=== PATIENT | female | born 1945 | race American Indian/Alaskan Native ===

== ENCOUNTER 2019-01-23 23:43 | Emergency (ER) | payer MEDICARE, OTHER ==
[2019-01-23] MEDS ORDERED: fentaNYL 100 MCG/2 ML SDV IVPUSH ONE (23:54)
[2019-01-23 23:55] VITALS: BP 167/55; PULSE 72
--- NOTE | 2019-01-23 23:57 | EDM.PDOC ---
ED HPI GENERAL MEDICAL PROBLEM - General Chief Complaint: Lower Extremity Injury/Pain Stated Complaint: AMBULANCE Time Seen by Provider: 01/23/19 23:54 Source of Information: Reports: Patient, EMS History Limitations: Reports: No Limitations - History of Present Illness INITIAL COMMENTS - FREE TEXT/NARRATIVE: EMS arrived with pt lying on front proch. pt states was carrying soda and going up stairs and lost balance and fell onto left hip unable get back up. Left Leg Pain Score (Numeric/FACES): 8 - Related Data Allergies Allergy/AdvReac Type Severity Reaction Status Date / Time diphenhydramine HCl Allergy Anxiety Verified 01/24/19 00:00 [From Benadryl] Home Meds: Home Meds Ascorbic Acid 1,000 gm PO DAILY 03/21/14 [History] Insulin Detemir [Levemir] 25 unit SQ BEDTIME 03/21/14 [History] Iron Polysaccharide Complex [Poly-Iron] 150 mg PO DAILY 03/21/14 [History] Lisinopril [Prinivil] 40 mg PO DAILY 03/21/14 [History] metFORMIN [Glucophage] 1,000 mg PO BIDM 03/21/14 [History] Aspirin [Halfprin] 81 mg PO DAILY 09/12/14 [History] Ranitidine [Zantac] 150 mg PO DAILY 09/12/14 [History] atorvaSTATin Calcium [Atorvastatin Calcium] 5 mg PO BEDTIME 09/12/14 [History] Multivitamin with Minerals [Antioxidant Vitamin] 1 tab PO DAILY 09/01/15 [ History] Potassium Chloride [Klor-Con M20] 20 meq PO BID 09/28/15 [History] Metoprolol Tartrate [Lopressor] 50 mg PO DAILY 01/21/16 [History] Albuterol [Proventil Neb Soln] 1 ampule INH Q4HR PRN 02/15/16 [History] Furosemide [Lasix] 20 mg PO BID #60 tablet 02/17/16 [Rx] Past Medical History HEENT History: Reports: None, Impaired Vision Cardiovascular History: Reports: Heart Failure, High Cholesterol, Hypertension Respiratory History: Reports: COPD, SOB Gastrointestinal History: Reports: GERD Genitourinary History: Reports: None 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 MANAGER History: partial hysterectomy still has ovaries Musculoskeletal History: Reports: Fracture Neurological History: Reports: None Psychiatric History: Reports: Anxiety Endocrine/Metabolic History: Reports: Diabetes, Type II, IDDM Hematologic History: Reports: Anemia, Iron Deficiency Immunologic History: Reports: None Oncologic (Cancer) History: Reports: None Dermatologic History: Reports: None - Past Surgical History GI Surgical History: Reports: Appendectomy, Cholecystectomy Female Surgical History: Reports: Hysterectomy Other Musculoskeletal Surgeries/Procedures:: rt knee cap replaced Social & Family History - Family History Cardiac: Reports: CAD, Heart Failure, High Cholesterol, Hypertension Respiratory: Reports: Asthma, COPD GI: Reports: Cholelithiasis, GERD : Reports: Renal Disease/Insufficiency Neurological: Reports: CVA Endocrine/Metabolic: Reports: Diabetes, type II - Tobacco Use Smoking Status *Q: Never Smoker - Caffeine Use Caffeine Use: Reports: Coffee, Tea - Recreational Drug Use Recreational Drug Use: No - Living Situation & Occupation Living situation: Reports: with Family Occupation: Retired Review of Systems - Review of Systems Review Of Systems: ROS reveals no pertinent complaints other than HPI. ED EXAM, GENERAL - Physical Exam Exam: See Below Exam Limited By: No Limitations General Appearance: Alert, WD/WN, Mild Distress, Moderate Distress, Other (pain) Ears: Hearing Grossly Normal Throat/Mouth: Normal Voice, No Airway Compromise Head: Atraumatic Neck: Non-Tender, Full Range of Motion Respiratory/Chest: No Respiratory Distress Cardiovascular: Regular Rate, Rhythm GI/Abdominal: Soft, Non-Tender Extremities: Other (left hip tender R/P, NV wnl.) Neurological: Alert, Oriented, Normal Cognition, No Motor/Sensory Deficits Psychiatric: Tearful Skin Exam: Warm, Dry, Normal Color Course - Vital Signs Last Recorded V/S: Last Vital Signs Temp 36.6 C 01/23/19 23:43 Pulse 72 01/23/19 23:43 Resp 18 01/23/19 23:43 BP 167/55 H 01/23/19 23:43 Pulse Ox 93 L 01/23/19 23:43 - Orders/Labs/Meds Orders: Active Orders 24 hr Category Date Time Status Fournier Catheter Insertion [Insert Urinary Catheter] [OM. Care 01/24/19 00:15 Ordered PC] Q24H Urinary Catheter Assessment [RC] ASDIRECTED Care 01/24/19 00:15 Active CMP [COMPREHENSIVE METABOLIC PN,CMP] [CHEM] Stat Lab 01/23/19 23:53 Ordered UA RFX ANTONIO AND CULT IF INDIC [URIN] Stat Lab 01/24/19 00:10 Received Labs: Laboratory Tests 01/23/19 Range/Units 23:58 WBC 9.3 (5.0-10.0) 10^3/uL RBC 3.94 L (4.2-5.4) 10^6/uL Hgb 11.2 L (12.0-16.0) g/dL Hct 33.5 L (37.0-47.0) % MCV 85.0 (80-100) fL MCH 28.4 (27.0-34.0) pg MCHC 33.4 (33.0-35.0) g/dL Plt Count 167 (150-450) 10^3/uL Neut % (Auto) 73.7 (42.2-75.2) % Lymph % (Auto) 15.7 L (20.5-50.1) % [place] % (Auto) 6.9 (2-8) % Eos % (Auto) 3.1 H (1.0-3.0) % Baso % (Auto) 0.6 (0.0-1.0) % Meds: Medications Discontinued Medications Generic Name Dose Route Start Last Admin Trade Name Freq PRN Reason Stop Dose Admin Fentanyl 50 mcg 01/23/19 23:54 01/24/19 00:04 Sublimaze IVPUSH 01/23/19 23:55 50 mcg ONETIME ONE Administration - Re-Assessments/Exams Free Text/Narrative Re-Assessment/Exam: 01/24/19 00:[address] Rodo bryant @ who kindly accepted pt. Departure - Departure Time of Disposition: 00:43 Disposition: DC/Tfer to Acute Hospital 02 Condition: Fair Clinical Impression: Intertrochanteric fracture, hip - Discharge Information Forms: Interfacility Transfer EMTALA - My Orders Last 24 Hours: My Active Orders 01/23/19 23:53 CMP [COMPREHENSIVE METABOLIC PN,CMP] [CHEM] Stat 01/24/19 00:10 UA RFX ANTONIO AND CULT IF INDIC [URIN] Stat 01/24/19 00:15 Fournier Catheter Insertion [Insert Urinary Catheter] [OM.PC] Q24H Urinary Catheter Assessment [RC] ASDIRECTED - Assessment/Plan Last 24 Hours: My Active Orders 01/23/19 23:53 CMP [COMPREHENSIVE METABOLIC PN,CMP] [CHEM] Stat 01/24/19 00:10 UA RFX ANTONIO AND CULT IF INDIC [URIN] Stat 01/24/19 00:15 Fournier Catheter Insertion [Insert Urinary Catheter] [OM.PC] Q24H Urinary Catheter Assessment [RC] ASDIRECTED
[2019-01-24 00:41] LABS: ANION GAP 12.8; CHLORIDE,CL 101 mmol/L (101-111); SODIUM,NA 136 mmol/L (135-145)
[2019-01-24] MEDS ORDERED: HYDROmorphone 1 MG/ML Syringe IVPUSH ONE (01:14)
== END 2019-01-24 01:35 ==
LOC: DL.ED 23:43
DX: S72.142A Displaced intertrochanteric fracture of left femur, initial encounter for closed fracture (principal); Z79.4 Long term (current) use of insulin; Z79.82 Long term (current) use of aspirin; Z79.899 Other long term (current) drug therapy; Z88.8 Allergy status to other drugs, medicaments and biological substances; W10.9XXA Fall (on) (from) unspecified stairs and steps, initial encounter
CPT/HCPCS: 36415; 51702; 73502; 80053; 81001; 85025; 96374; 96375; 99285; J1170; J3010; 99284

== ENCOUNTER 2019-01-27 10:34 | Inpatient (IN) | payer MEDICARE, OTHER ==
[2019-01-27] MEDS ORDERED: Albuterol 0.083% 2.5 MG/3 ML Neb Soln NEB PRN (18:08)
[2019-01-27] MEDS ORDERED: Zolpidem 5 MG Tab PO PRN (18:10)
[2019-01-27] MEDS ORDERED: Docusate Sodium 100 MG Cap PO PRN (18:10)
[2019-01-27] MEDS ORDERED: Ondansetron 4 MG Tab.DIS PO PRN (18:10)
--- NOTE | 2019-01-27 19:02 | PCM.HP ---
H&P History of Present Illness - General Date of Service: 01/27/19 Admit Problem/Dx: Admission Diagnosis/Problem Admission Diagnosis/Problem Hip fracture, intertrochanteric Source of Information: Patient - History of Present Illness Initial Comments - Free Text/Narative: 73-year-old lady with a history of diabetes, hypertension, coronary artery disease The patient was admitted to [facility] with left femur fracture. The patient underwent gamma nailing. Subsequently the patient was transferred for further physical therapy in a swing bed setting. She has moderate left hip pain. Since the fracture. Improved since surgery. Better with rest. Worse with activity. No recent chest pain, fever. - Related Data Allergies/Adverse Reactions: Allergies Allergy/AdvReac Type Severity Reaction Status Date / Time adhesive tape Allergy Rash Verified 01/27/19 17:03 diphenhydramine HCl Allergy Anxiety Verified 01/27/19 17:03 [From Benadryl] Home Medications: Home Meds Insulin Detemir [Levemir] 25 unit SQ BID 03/21/14 [History] Iron Polysaccharide Complex [Poly-Iron] 150 mg PO BID 03/21/14 [History] Lisinopril [Prinivil] 40 mg PO DAILY 03/21/14 [History] metFORMIN [Glucophage] 1,000 mg PO BIDM 03/21/14 [History] Ranitidine [Zantac] 150 mg PO DAILY 09/12/14 [History] atorvaSTATin Calcium [Atorvastatin Calcium] 5 mg PO BEDTIME 09/12/14 [History] Multivitamin with Minerals [Antioxidant Vitamin] 1 tab PO DAILY 09/01/15 [ History] Potassium Chloride [Klor-Con M20] 20 meq PO BID 09/28/15 [History] Acetaminophen 1,000 mg PO Q8HR 01/27/19 [History] Albuterol [Proventil Neb Soln] 3 ml NEB Q4HR PRN 01/27/19 [History] Ascorbic Acid 500 mg PO DAILY 01/27/19 [History] Aspirin [Ecotrin] 81 mg PO DAILY 01/27/19 [History] Carvedilol [Coreg] 12.5 mg PO BID 01/27/19 [History] Cyanocobalamin (Vitamin B-12) [Vitamin B-12] 50 mcg PO DAILY 01/27/19 [History] Enoxaparin [Lovenox] 0.4 ml SUBCUT DAILY 01/27/19 [History] Furosemide [Lasix] 20 mg PO BIDAC 01/27/19 [History] Nystatin [Nystop] 1 applic TOP TID 01/27/19 [History] Oxybutynin 5 mg PO DAILY 01/27/19 [History] glyBURIDE [Glyburide] 2.5 mg PO ACBREAKFAST 01/27/19 [History] oxyCODONE 5 mg PO Q4HR PRN 01/27/19 [History] Past Medical History HEENT History: Reports: None, Impaired Vision Cardiovascular History: Reports: CAD, Heart Failure, High Cholesterol, Hypertension Respiratory History: Reports: COPD, SOB Gastrointestinal History: Reports: GERD, Pancreatitis Genitourinary History: Reports: None 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: partial hysterectomy still has ovaries Musculoskeletal History: Reports: Fracture Neurological History: Reports: Neuropathy, Diabetic Psychiatric History: Reports: Anxiety Endocrine/Metabolic History: Reports: Diabetes, Type II, IDDM Hematologic History: Reports: Anemia, Iron Deficiency Immunologic History: Reports: None Oncologic (Cancer) History: Reports: None Dermatologic History: Reports: None - Past Surgical History GI Surgical History: Reports: Appendectomy, Cholecystectomy Female Surgical History: Reports: Hysterectomy Other Musculoskeletal Surgeries/Procedures:: rt knee cap replaced, 1975 bilateral leg reduction per pt Social & Family History - Family History Family Medical History: Noncontributory Cardiac: Reports: CAD, Heart Failure, High Cholesterol, Hypertension Respiratory: Reports: Asthma, COPD GI: Reports: Cholelithiasis, GERD : Reports: Renal Disease/Insufficiency Neurological: Reports: CVA Endocrine/Metabolic: Reports: Diabetes, type II - Tobacco Use Smoking Status *Q: Never Smoker Used Tobacco, but Quit: Yes Month/Year Tobacco Last Used: 1992 Second Hand Smoke Exposure: Yes - Caffeine Use Caffeine Use: Reports: Coffee - Recreational Drug Use Recreational Drug Use: No - Living Situation & Occupation Living situation: Reports: with Family Occupation: Retired H&P Review of Systems - Review of Systems: Review Of Systems: See Below General: Denies: Fever Pulmonary: Denies: Shortness of Breath Cardiovascular: Denies: Chest Pain Gastrointestinal: Denies: Abdominal Pain Genitourinary: Denies: Dysuria Psychiatric: Denies: Confusion Exam - Exam Exam: See Below - Vital Signs Weight: 78.29 kg - Exam General: Alert, Oriented Neck: Supple Lungs: Clear to Auscultation, Normal Respiratory Effort Cardiovascular: Regular Rate, Regular Rhythm GI/Abdominal Exam: No Distention Extremities: No Pedal Edema - Patient Data Lab Results Last 24 hrs: Laboratory Results - last 24 hr 01/27/19 Range/Units 17:12 POC Glucose 490 H* (83-110) mg/dl - Problem List (1) Hypertension SNOMED Code(s): 65235848 ICD Code: I10 - ESSENTIAL (PRIMARY) HYPERTENSION Status: Acute Current Visit: Yes (2) Diabetes SNOMED Code(s): 63844875 ICD Code: E11.9 - TYPE 2 DIABETES MELLITUS WITHOUT COMPLICATIONS Status: Acute Current Visit: No (3) Hyperglycemia SNOMED Code(s): 42403102 ICD Code: R73.9 - HYPERGLYCEMIA, UNSPECIFIED Status: Acute Current Visit : No (4) Intertrochanteric fracture, hip SNOMED Code(s): 596751642 ICD Code: S72.143A - DISPLACED INTERTROCHANTERIC FRACTURE OF UNSP FEMUR, INIT Status: Acute Current Visit: No Problem List Initiated/Reviewed/Updated: Yes Orders Last 24hrs: Active Orders 24 hr Category Date Time Status Patient Status [ADT] Routine ADT 01/27/19 18:10 Active Antiembolic Devices [RC] PER UNIT ROUTINE Care 01/27/19 18:12 Active Glucose [Blood Glucose Check, Bedside] [RC] QIDACANDBED Care 01/27/19 18:10 Active Oxygen Therapy [RC] PRN Care 01/27/19 18:10 Active Up With Assistance [RC] ASDIRECTED Care 01/27/19 18:10 Active VTE/DVT Education [RC] PER UNIT ROUTINE Care 01/27/19 18:10 Active Vital Signs [RC] QSHIFT Care 01/27/19 18:10 Active OT Evaluation and Treatment [CONS] Routine Cons 01/27/19 18:10 Active PT Evaluation and Treatment [CONS] Routine Cons 01/27/19 18:10 Active Consistent Carbohydrate Diet [DIET] Diet 01/27/19 Breakfast Active Albuterol [Proventil Neb Soln] Med 01/27/19 18:08 Active 2.5 mg NEB Q4HR PRN Ascorbic Acid [Vitamin C] Med 01/28/19 09:00 Active 500 mg PO DAILY Aspirin [Halfprin] Med 01/28/19 09:00 Active 81 mg PO DAILY Carvedilol [Coreg] Med 01/27/19 21:00 Ordered 12.5 mg PO BID Cyanocobalamin (Vitamin B12) [Vitamin B12] Med 01/28/19 09:00 Active 50 mcg PO DAILY Docusate Sodium [Colace] Med 01/27/19 18:10 Active 100 mg PO BID PRN Enoxaparin [Lovenox] Med 01/28/19 09:00 Ordered 40 mg SUBCUT DAILY Furosemide [Lasix] Med 01/28/19 06:00 Active 20 mg PO BIDAC Insulin Glarg,Human.Rec.Analog [LantUS] Med 01/27/19 21:00 Ordered 25 unit SUBCUT BID Insulin Lispro [HumaLOG] Med 01/27/19 21:00 Ordered See Protocol SUBCUT ACBED Iron Polysaccharides Complex [Ferrex 150] Med 01/27/19 21:00 Active 150 mg PO BID Lisinopril [Prinivil] Med 01/28/19 09:00 Ordered 40 mg PO DAILY Multivitamin with Minerals [Antioxidant Vitamin] Med 01/28/19 09:00 Ordered 1 tab PO DAILY Nystatin [Nystop] Med 01/27/19 21:00 Ordered DOSE gm TOP TID Ondansetron [Zofran ODT] Med 01/27/19 18:10 Active 4 mg PO Q4H PRN Oxybutynin Med 01/28/19 09:00 Active 5 mg PO DAILY Potassium Chloride [Klor-Con M20] Med 01/27/19 21:00 Ordered 20 meq PO BID Zolpidem [Ambien] Med 01/27/19 18:10 Active 5 mg PO BEDTIME PRN atorvaSTATin [Lipitor] Med 01/27/19 21:00 Active 5 mg PO BEDTIME glyBURIDE [Micronase] Med 01/28/19 06:00 Active 2.5 mg PO ACBREAKFAST metFORMIN [Glucophage] Med 01/28/19 08:00 Ordered 1,000 mg PO BIDM oxyCODONE Med 01/27/19 18:08 Active 5 mg PO Q4HR PRN Antiembolic Hose [OM.PC] Per Unit Routine Oth 01/27/19 18:12 Ordered Resuscitation Status Routine Resus Stat 01/27/19 18:10 Ordered Medication Orders Albuterol (Proventil Neb Soln) 2.5 mg NEB Q4HR PRN PRN Reason: Wheezing Ascorbic Acid (Vitamin C) 500 mg PO DAILY LISA Aspirin (Halfprin) 81 mg PO DAILY LISA Atorvastatin Calcium (Lipitor) 5 mg PO BEDTIME LISA Cyanocobalamin (Vitamin B12) 50 mcg PO DAILY LISA Docusate Sodium (Colace) 100 mg PO BID PRN PRN Reason: Constipation Enoxaparin Sodium (Lovenox) 40 mg SUBCUT DAILY [facility] Stop: 02/04/19 09:01 Furosemide (Lasix) 20 mg PO BIDAC LISA Glyburide (Micronase) 2.5 mg PO ACBREAKFAST LISA Insulin Glargine (Lantus) 25 unit SUBCUT BID LISA Insulin Human Lispro (Humalog) 0 unit SUBCUT ACBED LISA; Protocol Non-Formulary Medication (Carvedilol [Coreg]) 12.5 mg PO BID LISA Non-Formulary Medication (Lisinopril [Prinivil]) 40 mg PO DAILY [facility] Non-Formulary Medication (Metformin [Glucophage]) 1,000 mg PO BIDM [facility] Non-Formulary Medication (Multivitamin With Minerals [Antioxidant Vitamin]) 1 tab PO DAILY [facility] Non-Formulary Medication (Potassium Chloride [Klor-Con M20]) 20 meq PO BID LISA Nystatin (Nystop) gm TOP TID LISA Ondansetron HCl (Zofran Odt) 4 mg PO Q4H PRN PRN Reason: nausea, able to take PO Oxybutynin Chloride (Oxybutynin) 5 mg PO DAILY [facility] Oxycodone HCl (Oxycodone) 5 mg PO Q4HR PRN PRN Reason: Pain (severe 7-10) Polysaccharide Iron Complex (Ferrex 150) 150 mg PO BID LISA Zolpidem Tartrate (Ambien) 5 mg PO BEDTIME PRN PRN Reason: Sleep Assessment/Plan Comment:: 73-year-old lady with a history of diabetes, hypertension, coronary artery disease The patient was admitted to [facility] with left femur fracture. The patient underwent gamma nailing. Subsequently the patient was transferred for further physical therapy in a swing bed setting. Status post left hip fracture DVT prophylaxis with Lovenox Consult physical and occupational therapy Coronary artery disease Treat with Coreg, Lipitor, aspirin Diabetes Treat with Lantus, metformin, glyburide Use supplemental insulin and hypoglycemia protocol if needed Hypertension Treat with lisinopril, Coreg,
[2019-01-27] MEDS: Insulin Lispro 100 Units/ML 3 ML Vial SUBCUT SCH ×2 (19:18→21:18)
[2019-01-27] MEDS: Carvedilol 6.25 MG Tab PO SCH (19:20)
[2019-01-27] MEDS: Furosemide 40 MG Tab PO SCH (19:21)
[2019-01-27] MEDS: oxyCODONE 5 MG Tab PO PRN (19:33)
[2019-01-27] MEDS ORDERED: INSULIN DETEMIR 25 UNIT SQ SCH (21:00)
[2019-01-27] MEDS: Potassium Chloride 10 MEQ Tab.ER PO SCH (21:00)
[2019-01-27] MEDS: atorvaSTATin 10 MG Tab PO SCH (21:00)
[2019-01-27] MEDS: Iron Polysaccharides Complex 150 MG Cap PO SCH (21:01)
[2019-01-27] MEDS: Nystatin Topical Powder 30 GM Bottle TOP SCH (21:03)
[2019-01-27] MEDS: Insulin Glarg,Human.Rec.Analog 100 Unit/ML SUBCUT SCH (21:20)
[2019-01-28] MEDS ORDERED: Acetaminophen 325 MG Tab PO PRN (03:47)
[2019-01-28] MEDS: oxyCODONE 5 MG Tab PO PRN ×2 (05:06→13:37)
[2019-01-28] MEDS: glyBURIDE 5 MG Tab PO SCH (07:47)
[2019-01-28] MEDS: Carvedilol 6.25 MG Tab PO SCH ×2 (07:49→17:30)
[2019-01-28] MEDS: Insulin Lispro 100 Units/ML 3 ML Vial SUBCUT SCH ×4 (07:53→22:23)
[2019-01-28] MEDS: Iron Polysaccharides Complex 150 MG Cap PO SCH ×2 (08:07→20:15)
[2019-01-28] MEDS: Potassium Chloride 10 MEQ Tab.ER PO SCH ×2 (08:07→20:13)
[2019-01-28] MEDS: Multivitamins,Therapeutic Tab PO SCH (08:08)
[2019-01-28] MEDS: Lisinopril 20 MG Tab PO SCH (08:08)
[2019-01-28] MEDS: Aspirin 81 MG Tab.EC PO SCH (08:09)
[2019-01-28] MEDS: Cyanocobalamin (Vitamin B12) 100 MCG Tab PO SCH (08:09)
[2019-01-28] MEDS: Ascorbic Acid 500 MG Tab PO SCH (08:09)
[2019-01-28] MEDS: Oxybutynin 5 MG Tab PO SCH (08:09)
[2019-01-28] MEDS: Furosemide 40 MG Tab PO SCH ×2 (08:10→13:35)
[2019-01-28] MEDS: Insulin Glarg,Human.Rec.Analog 100 Unit/ML SUBCUT SCH ×2 (08:15→22:21)
[2019-01-28] MEDS: Enoxaparin 40 MG/0.4 ML Syringe SUBCUT SCH (08:15)
[2019-01-28] MEDS ORDERED: Non-Formulary Medication 1 Each (Ranitidine [Zantac] 150 MG) PO SCH (09:00)
[2019-01-28] MEDS: Nystatin Topical Powder 30 GM Bottle TOP SCH ×2 (11:30→13:36)
[2019-01-28] MEDS: metFORMIN 500 MG Tab PO SCH ×2 (17:36→18:26)
[2019-01-28] MEDS: atorvaSTATin 10 MG Tab PO SCH (20:13)
[2019-01-29] MEDS: oxyCODONE 5 MG Tab PO PRN ×3 (03:32→19:43)
[2019-01-29] MEDS: Insulin Lispro 100 Units/ML 3 ML Vial SUBCUT SCH ×4 (09:04→21:47)
[2019-01-29] MEDS: Cyanocobalamin (Vitamin B12) 100 MCG Tab PO SCH (09:09)
[2019-01-29] MEDS: Potassium Chloride 10 MEQ Tab.ER PO SCH ×2 (09:10→21:48)
[2019-01-29] MEDS: Carvedilol 6.25 MG Tab PO SCH ×2 (09:11→17:48)
[2019-01-29] MEDS: glyBURIDE 5 MG Tab PO SCH (09:12)
[2019-01-29] MEDS: metFORMIN 500 MG Tab PO SCH ×2 (09:12→17:47)
[2019-01-29] MEDS: Oxybutynin 5 MG Tab PO SCH (09:12)
[2019-01-29] MEDS: Aspirin 81 MG Tab.EC PO SCH (09:12)
[2019-01-29] MEDS: Furosemide 40 MG Tab PO SCH ×2 (09:13→14:48)
[2019-01-29] MEDS: Lisinopril 20 MG Tab PO SCH (09:13)
[2019-01-29] MEDS: Iron Polysaccharides Complex 150 MG Cap PO SCH ×2 (09:14→21:48)
[2019-01-29] MEDS: Multivitamins,Therapeutic Tab PO SCH (09:14)
[2019-01-29] MEDS: Enoxaparin 40 MG/0.4 ML Syringe SUBCUT SCH (09:14)
[2019-01-29] MEDS: Ascorbic Acid 500 MG Tab PO SCH (09:14)
[2019-01-29] MEDS: Insulin Glarg,Human.Rec.Analog 100 Unit/ML SUBCUT SCH ×2 (10:18→21:47)
[2019-01-29] MEDS: atorvaSTATin 10 MG Tab PO SCH (21:48)
[2019-01-30] MEDS: Insulin Glarg,Human.Rec.Analog 100 Unit/ML SUBCUT SCH ×2 (08:41→22:53)
[2019-01-30] MEDS: Insulin Lispro 100 Units/ML 3 ML Vial SUBCUT SCH ×4 (08:42→22:52)
[2019-01-30] MEDS: Lisinopril 20 MG Tab PO SCH (08:47)
[2019-01-30] MEDS: Potassium Chloride 10 MEQ Tab.ER PO SCH ×2 (08:47→21:04)
[2019-01-30] MEDS: metFORMIN 500 MG Tab PO SCH ×2 (08:47→18:02)
[2019-01-30] MEDS: glyBURIDE 5 MG Tab PO SCH (08:47)
[2019-01-30] MEDS: Oxybutynin 5 MG Tab PO SCH (08:48)
[2019-01-30] MEDS: Iron Polysaccharides Complex 150 MG Cap PO SCH ×2 (08:48→21:04)
[2019-01-30] MEDS: Ascorbic Acid 500 MG Tab PO SCH (08:48)
[2019-01-30] MEDS: Furosemide 40 MG Tab PO SCH ×2 (08:48→13:19)
[2019-01-30] MEDS: Carvedilol 6.25 MG Tab PO SCH ×2 (08:48→18:01)
[2019-01-30] MEDS: Multivitamins,Therapeutic Tab PO SCH (08:48)
[2019-01-30] MEDS: Aspirin 81 MG Tab.EC PO SCH (08:49)
[2019-01-30] MEDS: Cyanocobalamin (Vitamin B12) 100 MCG Tab PO SCH (08:49)
[2019-01-30] MEDS: Enoxaparin 40 MG/0.4 ML Syringe SUBCUT SCH (08:49)
[2019-01-30] MEDS: oxyCODONE 5 MG Tab PO PRN ×3 (08:55→22:34)
[2019-01-30] MEDS: guaiFENesin 100 MG/5 ML Soln 5 ML UD Cup PO PRN (08:57)
[2019-01-30] MEDS: atorvaSTATin 10 MG Tab PO SCH (21:02)
[2019-01-31] MEDS: oxyCODONE 5 MG Tab PO PRN ×3 (06:48→22:21)
[2019-01-31] MEDS: Iron Polysaccharides Complex 150 MG Cap PO SCH ×2 (08:19→20:17)
[2019-01-31] MEDS: Ascorbic Acid 500 MG Tab PO SCH (08:20)
[2019-01-31] MEDS: glyBURIDE 5 MG Tab PO SCH (08:20)
[2019-01-31] MEDS: Aspirin 81 MG Tab.EC PO SCH (08:20)
[2019-01-31] MEDS: Oxybutynin 5 MG Tab PO SCH (08:20)
[2019-01-31] MEDS: Furosemide 40 MG Tab PO SCH ×2 (08:21→14:20)
[2019-01-31] MEDS: Lisinopril 20 MG Tab PO SCH (08:21)
[2019-01-31] MEDS: Multivitamins,Therapeutic Tab PO SCH (08:22)
[2019-01-31] MEDS: Carvedilol 6.25 MG Tab PO SCH ×2 (08:22→17:22)
[2019-01-31] MEDS: Potassium Chloride 10 MEQ Tab.ER PO SCH ×2 (08:23→20:17)
[2019-01-31] MEDS: Cyanocobalamin (Vitamin B12) 100 MCG Tab PO SCH (08:23)
[2019-01-31] MEDS: metFORMIN 500 MG Tab PO SCH ×2 (08:23→17:22)
[2019-01-31] MEDS: Enoxaparin 40 MG/0.4 ML Syringe SUBCUT SCH (08:24)
[2019-01-31] MEDS: Insulin Lispro 100 Units/ML 3 ML Vial SUBCUT SCH ×4 (08:26→22:21)
[2019-01-31] MEDS: Insulin Glarg,Human.Rec.Analog 100 Unit/ML SUBCUT SCH ×2 (09:05→22:18)
[2019-01-31] MEDS: atorvaSTATin 10 MG Tab PO SCH (20:17)
[2019-02-01] MEDS: Insulin Lispro 100 Units/ML 3 ML Vial SUBCUT SCH ×4 (08:18→21:20)
[2019-02-01] MEDS: Potassium Chloride 10 MEQ Tab.ER PO SCH ×2 (09:05→21:16)
[2019-02-01] MEDS: oxyCODONE 5 MG Tab PO PRN ×3 (09:05→21:16)
[2019-02-01] MEDS: Cyanocobalamin (Vitamin B12) 100 MCG Tab PO SCH (09:05)
[2019-02-01] MEDS: glyBURIDE 5 MG Tab PO SCH (09:06)
[2019-02-01] MEDS: Multivitamins,Therapeutic Tab PO SCH (09:06)
[2019-02-01] MEDS: Aspirin 81 MG Tab.EC PO SCH (09:06)
[2019-02-01] MEDS: Furosemide 40 MG Tab PO SCH ×2 (09:06→13:21)
[2019-02-01] MEDS: Ascorbic Acid 500 MG Tab PO SCH (09:06)
[2019-02-01] MEDS: Carvedilol 6.25 MG Tab PO SCH ×2 (09:06→18:29)
[2019-02-01] MEDS: Iron Polysaccharides Complex 150 MG Cap PO SCH ×2 (09:06→21:16)
[2019-02-01] MEDS: metFORMIN 500 MG Tab PO SCH ×2 (09:07→18:29)
[2019-02-01] MEDS: Lisinopril 20 MG Tab PO SCH (09:07)
[2019-02-01] MEDS: Insulin Glarg,Human.Rec.Analog 100 Unit/ML SUBCUT SCH ×2 (09:07→21:18)
[2019-02-01] MEDS: Oxybutynin 5 MG Tab PO SCH (09:07)
[2019-02-01] MEDS: Enoxaparin 40 MG/0.4 ML Syringe SUBCUT SCH (09:07)
[2019-02-01] MEDS: guaiFENesin 100 MG/5 ML Soln 5 ML UD Cup PO PRN (13:21)
[2019-02-01] MEDS: atorvaSTATin 10 MG Tab PO SCH (21:15)
[2019-02-02] MEDS: oxyCODONE 5 MG Tab PO PRN ×4 (06:00→21:25)
[2019-02-02] MEDS: Insulin Lispro 100 Units/ML 3 ML Vial SUBCUT SCH ×3 (09:23→16:59)
[2019-02-02] MEDS: Insulin Glarg,Human.Rec.Analog 100 Unit/ML SUBCUT SCH ×2 (09:27→21:15)
[2019-02-02] MEDS: Oxybutynin 5 MG Tab PO SCH (09:28)
[2019-02-02] MEDS: metFORMIN 500 MG Tab PO SCH ×2 (09:28→17:41)
[2019-02-02] MEDS: Potassium Chloride 10 MEQ Tab.ER PO SCH ×2 (09:28→21:13)
[2019-02-02] MEDS: Aspirin 81 MG Tab.EC PO SCH (09:28)
[2019-02-02] MEDS: Ascorbic Acid 500 MG Tab PO SCH (09:28)
[2019-02-02] MEDS: Furosemide 40 MG Tab PO SCH ×2 (09:30→15:50)
[2019-02-02] MEDS: Cyanocobalamin (Vitamin B12) 100 MCG Tab PO SCH (09:30)
[2019-02-02] MEDS: Carvedilol 6.25 MG Tab PO SCH ×2 (09:31→17:38)
[2019-02-02] MEDS: Iron Polysaccharides Complex 150 MG Cap PO SCH ×2 (09:31→21:13)
[2019-02-02] MEDS: Multivitamins,Therapeutic Tab PO SCH (09:31)
[2019-02-02] MEDS: Lisinopril 20 MG Tab PO SCH (09:32)
[2019-02-02] MEDS: glyBURIDE 5 MG Tab PO SCH (09:32)
[2019-02-02] MEDS: Enoxaparin 40 MG/0.4 ML Syringe SUBCUT SCH (09:35)
[2019-02-02] MEDS: atorvaSTATin 10 MG Tab PO SCH (21:13)
[2019-02-03] MEDS: Insulin Lispro 100 Units/ML 3 ML Vial SUBCUT SCH ×3 (00:37→12:22)
[2019-02-03] MEDS: metFORMIN 500 MG Tab PO SCH (08:40)
[2019-02-03] MEDS: Cyanocobalamin (Vitamin B12) 100 MCG Tab PO SCH (08:40)
[2019-02-03] MEDS: Potassium Chloride 10 MEQ Tab.ER PO SCH (08:40)
[2019-02-03] MEDS: Multivitamins,Therapeutic Tab PO SCH (08:40)
[2019-02-03] MEDS: Lisinopril 20 MG Tab PO SCH (08:41)
[2019-02-03] MEDS: glyBURIDE 5 MG Tab PO SCH (08:42)
[2019-02-03] MEDS: Iron Polysaccharides Complex 150 MG Cap PO SCH (08:42)
[2019-02-03] MEDS: Carvedilol 6.25 MG Tab PO SCH (08:43)
[2019-02-03] MEDS: Ascorbic Acid 500 MG Tab PO SCH (08:44)
[2019-02-03] MEDS: Enoxaparin 40 MG/0.4 ML Syringe SUBCUT SCH (08:44)
[2019-02-03] MEDS: Oxybutynin 5 MG Tab PO SCH (08:44)
[2019-02-03] MEDS: Aspirin 81 MG Tab.EC PO SCH (08:44)
[2019-02-03] MEDS: Furosemide 40 MG Tab PO SCH (08:44)
[2019-02-03 08:48] VITALS: BP 135/53; PULSE 74
[2019-02-03] MEDS: Insulin Glarg,Human.Rec.Analog 100 Unit/ML SUBCUT SCH (09:37)
--- NOTE | 2019-02-03 12:14 | PCM.DCSUM1 ---
Discharge Summary - Hospital Course Free Text/Narrative:: 73-year-old lady with a history of diabetes, hypertension, coronary artery disease The patient was admitted to [facility] with left femur fracture. The patient underwent gamma nailing. Subsequently the patient was transferred for further physical therapy in a swing bed setting. She did well with PT/OT during her stay in swing bed No new complaints Will discharge today with follow up with her PCP and the orthopedic clinic 20 tabs of 5 mg oxycodone were prescribed for prn pain control at home Diagnosis: Stroke: No - Discharge Data Discharge Date: 02/03/19 Discharge Disposition: Home, Self-Care 01 Condition: Good - Patient Summary/Data Consults: Consultations 01/27/19 18:10 OT Evaluation and Treatment [CONS] Routine PT Evaluation and Treatment [CONS] Routine - Patient Instructions Diet: Usual Diet as Tolerated Activity: As Tolerated - Discharge Plan Prescriptions/Med Rec: oxyCODONE 5 mg PO Q4HR PRN 7 Days #20 tablet PRN Reason: Pain (Severe 7-10) Home Medications: Home Meds Insulin Detemir [Levemir] 25 unit SQ BID 03/21/14 [History] Iron Polysaccharide Complex [Poly-Iron] 150 mg PO BID 03/21/14 [History] Lisinopril [Prinivil] 40 mg PO DAILY 03/21/14 [History] metFORMIN [Glucophage] 1,000 mg PO BIDM 03/21/14 [History] Ranitidine [Zantac] 150 mg PO DAILY 09/12/14 [History] atorvaSTATin Calcium [Atorvastatin Calcium] 5 mg PO BEDTIME 09/12/14 [History] Multivitamin with Minerals [Antioxidant Vitamin] 1 tab PO DAILY 09/01/15 [ History] Potassium Chloride [Klor-Con M20] 20 meq PO BID 09/28/15 [History] Acetaminophen 1,000 mg PO Q8HR 01/27/19 [History] Albuterol [Proventil Neb Soln] 3 ml NEB Q4HR PRN 01/27/19 [History] Ascorbic Acid 500 mg PO DAILY 01/27/19 [History] Aspirin [Ecotrin EC] 81 mg PO DAILY 01/27/19 [History] Carvedilol [Coreg] 12.5 mg PO BID 01/27/19 [History] Cyanocobalamin (Vitamin B-12) [Vitamin B-12] 50 mcg PO DAILY 01/27/19 [History] Enoxaparin [Lovenox] 0.4 ml SUBCUT DAILY 01/27/19 [History] Furosemide [Lasix] 20 mg PO BIDAC 01/27/19 [History] Nystatin [Nystop] 1 applic TOP TID 01/27/19 [History] Oxybutynin 5 mg PO DAILY 01/27/19 [History] glyBURIDE [Glyburide] 2.5 mg PO ACBREAKFAST 01/27/19 [History] oxyCODONE 5 mg PO Q4HR PRN 7 Days #20 tablet 02/03/19 [Rx] Patient Handouts: Hip Fracture - Discharge Summary/Plan Comment DC Time >30 min.: No - Patient Data Vitals - Most Recent: Last Vital Signs Temp 36.9 C 02/03/19 07:57 Pulse 74 02/03/19 08:43 Resp 20 02/03/19 07:57 BP 135/53 L 02/03/19 08:43 Pulse Ox 98 02/03/19 07:57 Weight - Most Recent: 74.117 kg I&O - Last 24 hours: Intake & Output 02/02/19 02/03/19 02/03/19 22:59 06:59 14:59 Intake Total 600 200 340 Balance 600 200 340 Lab Results - Last 24 hrs: Laboratory Results - last 24 hr 02/02/19 02/02/19 02/03/19 Range/Units 16:47 20:48 07:47 POC Glucose 87 139 H 87 (83-110) mg/dl 02/03/19 Range/Units 11:32 POC Glucose 156 H (83-110) mg/dl Med Orders - Current: Current Medications Acetaminophen (Tylenol) 650 mg PO Q4H PRN PRN Reason: pain. fever Albuterol (Proventil Neb Soln) 2.5 mg NEB Q4HR PRN PRN Reason: Wheezing Ascorbic Acid (Vitamin C) 500 mg PO DAILY LISA Last Admin: 02/03/19 08:44 Dose: 500 mg Aspirin (Halfprin) 81 mg PO DAILY LISA Last Admin: 02/03/19 08:44 Dose: 81 mg Atorvastatin Calcium (Lipitor) 5 mg PO BEDTIME LISA Last Admin: 02/02/19 21:13 Dose: 5 mg Carvedilol (Coreg) 12.5 mg PO BID@0800,1800 [facility] Last Admin: 02/03/19 08:43 Dose: 12.5 mg Cyanocobalamin (Vitamin B12) 50 mcg PO DAILY [facility] Last Admin: 02/03/19 08:40 Dose: 50 mcg Docusate Sodium (Colace) 100 mg PO BID PRN PRN Reason: Constipation Last Admin: 01/29/19 14:48 Dose: 100 mg Enoxaparin Sodium (Lovenox) 40 mg SUBCUT DAILY [facility] Stop: 02/04/19 09:01 Last Admin: 02/03/19 08:44 Dose: 40 mg Furosemide (Lasix) 20 mg PO BID@0900,1400 [facility] Last Admin: 02/03/19 08:44 Dose: 20 mg Glyburide (Micronase) 2.5 mg PO DAILY@0730 [facility] Last Admin: 02/03/19 08:42 Dose: 2.5 mg Guaifenesin (Robitussin) 200 mg PO Q6HR PRN PRN Reason: Cough Last Admin: 02/01/19 13:21 Dose: 200 mg Insulin Glargine (Lantus) 25 unit SUBCUT BID [facility] Last Admin: 02/03/19 09:37 Dose: 25 units Insulin Human Lispro (Humalog) 0 unit SUBCUT ACBED [facility]; Protocol Last Admin: 02/03/19 08:39 Dose: Not Given Lisinopril (Prinivil) 40 mg PO DAILY [facility] Last Admin: 02/03/19 08:41 Dose: 40 mg Metformin HCl (Glucophage) 1,000 mg PO BIDM [facility] Last Admin: 02/03/19 08:40 Dose: 1,000 mg Multivitamins (Thera) 1 each PO DAILY [facility] Last Admin: 02/03/19 08:40 Dose: 1 each Ondansetron HCl (Zofran Odt) 4 mg PO Q4H PRN PRN Reason: nausea, able to take PO Oxybutynin Chloride (Oxybutynin) 5 mg PO DAILY [facility] Last Admin: 02/03/19 08:44 Dose: 5 mg Oxycodone HCl (Oxycodone) 5 mg PO Q4HR PRN PRN Reason: Pain (severe 7-10) Last Admin: 02/02/19 21:25 Dose: 5 mg Polysaccharide Iron Complex (Ferrex 150) 150 mg PO BID [facility] Last Admin: 02/03/19 08:42 Dose: 150 mg Potassium Chloride (Klor-Con 10) 20 meq PO BID [facility] Last Admin: 02/03/19 08:40 Dose: 20 meq Zolpidem Tartrate (Ambien) 5 mg PO BEDTIME PRN PRN Reason: Sleep Discontinued Medications Non-Formulary Medication (Insulin Detemir [Levemir]) 25 unit SQ BID [facility] Non-Formulary Medication (Ranitidine [Zantac]) 150 mg PO DAILY [facility] Nystatin (Nystop) 0 gm TOP TID [facility] Last Admin: 01/28/19 13:36 Dose: Not Given
[2019-02-03] MEDS: oxyCODONE 5 MG Tab PO PRN (12:24)
== END 2019-02-03 13:30 | disposition home or self-care (01) | DRG 561 ==
LOC: UNDOADMIN 16:46 → DL.MS 16:46 → UNDOADMIN 18:10 → DL.MS 18:10 → UNDODISIN 02-03 13:30
PROVIDERS: ADMIT Internal Medicine; ATTEND Hospitalist
DX: Z47.89 Encounter for other orthopedic aftercare (principal); I10 Essential (primary) hypertension; I25.10 Atherosclerotic heart disease of native coronary artery without angina pectoris; H54.7 Unspecified visual loss; E78.00 Pure hypercholesterolemia, unspecified; J44.9 Chronic obstructive pulmonary disease, unspecified; E11.42 Type 2 diabetes mellitus with diabetic polyneuropathy; F41.9 Anxiety disorder, unspecified; D64.9 Anemia, unspecified; E11.65 Type 2 diabetes mellitus with hyperglycemia; Z79.4 Long term (current) use of insulin; Z79.82 Long term (current) use of aspirin; Z88.8 Allergy status to other drugs, medicaments and biological substances; Z91.048 Other nonmedicinal substance allergy status; Z90.710 Acquired absence of both cervix and uterus; Z90.49 Acquired absence of other specified parts of digestive tract
CPT/HCPCS: 82962; 97110-GO; 97110-GP; 97116-GP; 97162-GP; 97165-GO; 97530-GO; A9270-GY; J1650; J1815; J1815-GY

== ENCOUNTER 2022-04-23 15:20 | Emergency (ER) | payer MEDICARE, OTHER ==
[2022-04-23 15:35] VITALS: BP 145/60; PULSE 78
[2022-04-23 16:29] LABS: CORONAVIRUS COVID-19 NAA NEGATIVE (NEGATIVE)
[2022-04-23] MEDS ORDERED: Amoxicillin/Clavulanate K 875-125 MG Tab PO ONE (16:30)
[2022-04-23] MEDS ORDERED: Azithromycin 250 MG Tab PO ONE (16:30)
== END 2022-04-23 17:15 | disposition home or self-care (01) ==
LOC: DL.ED 15:20
DX: J18.9 Pneumonia, unspecified organism (principal); I25.10 Atherosclerotic heart disease of native coronary artery without angina pectoris; I11.0 Hypertensive heart disease with heart failure; I50.9 Heart failure, unspecified; E78.00 Pure hypercholesterolemia, unspecified; E11.9 Type 2 diabetes mellitus without complications; E66.9 Obesity, unspecified; Z68.25 Body mass index [BMI] 25.0-25.9, adult; Z91.048 Other nonmedicinal substance allergy status; Z88.8 Allergy status to other drugs, medicaments and biological substances; Z79.899 Other long term (current) drug therapy; Z79.4 Long term (current) use of insulin; Z79.82 Long term (current) use of aspirin; Z86.16 Personal history of COVID-19; Z20.822 Contact with and (suspected) exposure to COVID-19
CPT/HCPCS: 0240U; 71045; 99284; 99285; A9270-GY

== ENCOUNTER 2022-04-29 16:48 | Emergency (ER) | payer MEDICARE, OTHER ==
[2022-04-29 16:34] VITALS: BP 173/55; PULSE 68
[2022-04-29] MEDS ORDERED: Silver Nitrate Applicator Each TOP ONE (16:49)
[2022-04-29] MEDS ORDERED: Oxymetazoline 0.05% Nasal Spray 30 ML Bottle NAS ONE (16:50)
[2022-04-29] MEDS ORDERED: Lidocaine 2% with EPINEPHrine 1:200,000 20 ML SDV ONE (16:50)
[2022-04-29] MEDS ORDERED: Silver Nitrate Applicator Each ONE (16:52)
[2022-04-29] MEDS ORDERED: Bacitracin Oint 1 GM U/D Packet TOP ONE (16:58)
== END 2022-04-29 17:29 | disposition home or self-care (01) ==
LOC: DL.ED 16:48
DX: R04.0 Epistaxis (principal); I11.0 Hypertensive heart disease with heart failure; I50.9 Heart failure, unspecified; I25.10 Atherosclerotic heart disease of native coronary artery without angina pectoris; E11.40 Type 2 diabetes mellitus with diabetic neuropathy, unspecified; E78.00 Pure hypercholesterolemia, unspecified; E66.9 Obesity, unspecified; Z68.30 Body mass index [BMI] 30.0-30.9, adult; Z91.048 Other nonmedicinal substance allergy status; Z88.8 Allergy status to other drugs, medicaments and biological substances; Z79.4 Long term (current) use of insulin; Z79.899 Other long term (current) drug therapy; Z79.82 Long term (current) use of aspirin; Z87.891 Personal history of nicotine dependence
CPT/HCPCS: 30901; 99284; A9270

== ENCOUNTER 2022-07-27 14:06 | Emergency (ER) | payer MEDICARE, OTHER ==
[2022-07-27 15:41] LABS: ANION GAP 13.5 mEq/L (7-13); CHLORIDE,CL 99 mmol/L (98-107); ESTIMATED GFR 70 mL/min (>=60); SODIUM,NA 138 mmol/L (136-145)
== END 2022-07-27 18:33 | disposition home or self-care (01) ==
LOC: DL.ED 14:06
DX: R29.90 Unspecified symptoms and signs involving the nervous system (principal); I25.10 Atherosclerotic heart disease of native coronary artery without angina pectoris; I11.0 Hypertensive heart disease with heart failure; I50.9 Heart failure, unspecified; E78.00 Pure hypercholesterolemia, unspecified; J44.9 Chronic obstructive pulmonary disease, unspecified; K21.9 Gastro-esophageal reflux disease without esophagitis; E11.40 Type 2 diabetes mellitus with diabetic neuropathy, unspecified; D50.9 Iron deficiency anemia, unspecified; E66.9 Obesity, unspecified; Z87.891 Personal history of nicotine dependence; Z91.048 Other nonmedicinal substance allergy status; Z88.8 Allergy status to other drugs, medicaments and biological substances; Z79.4 Long term (current) use of insulin; Z79.82 Long term (current) use of aspirin; Z79.899 Other long term (current) drug therapy
CPT/HCPCS: 36415; 71045; 80053; 82947; 83880; 84484; 85025; 93005; 99285

== ENCOUNTER 2022-07-29 16:09 | Inpatient (IN) | payer MEDICARE, OTHER ==
[2022-07-29] MEDS ORDERED: Acetaminophen 500 MG Tab PO ONE (16:23)
[2022-07-29] MEDS: Sodium Chloride 0.9% 10 ML Syringe FLUSH PRN (16:50)
[2022-07-29 16:57] LABS: CORONAVIRUS COVID-19 NAA NEGATIVE (NEGATIVE); RESPIRATORY SYNCYTIAL VIR NAA NEGATIVE (NEGATIVE)
[2022-07-29 17:19] LABS: ANION GAP 12.7 mEq/L (7-13)
[2022-07-29] MEDS ORDERED: Magnesium Sulfate/Water 2 GM in Premix Bag 1 BAG IV ONE ×2 (17:28→17:29)
[2022-07-29] MEDS ORDERED: Cefepime 2 GM in Sodium Chloride 0.9% 50 ML IV ONE (17:29)
[2022-07-29] MEDS ORDERED: Sodium Chloride 0.9% 1,000 ML IV ONE (17:30)
[2022-07-29] MEDS ORDERED: metroNIDAZOLE/Normal Saline 500 MG in Premix Bag 100 BAG IV ONE (17:47)
[2022-07-29] MEDS ORDERED: Iopamidol 612 MG/ML 100 ML Bottle IVPUSH ONE (17:47)
[2022-07-29] MEDS ORDERED: Piperacillin/Tazobactam 3.375 GM in Sodium Chloride 0.9% 100 ML IV ONE (20:24)
[2022-07-29] MEDS ORDERED: Acetaminophen 325 MG Tab PO PRN (20:26)
[2022-07-29] MEDS ORDERED: Acetaminophen/HYDROcodone 325-5 MG Tab PO PRN (20:26)
[2022-07-29] MEDS ORDERED: Polyethylene Glycol 3350 Powder 17 GM Packet PO PRN (20:26)
[2022-07-29] MEDS ORDERED: Albuterol/Ipratropium 3.0-0.5 MG/3 ML Neb Soln NEB PRN (20:26)
[2022-07-29] MEDS ORDERED: HYDROmorphone 0.5 MG/0.5 ML Syringe IVPUSH PRN (20:26)
[2022-07-29] MEDS ORDERED: Magnesium Hydroxide 400 MG/5 ML Susp 30 ML Cup PO PRN (20:26)
[2022-07-29] MEDS ORDERED: Ondansetron 4 MG/2 ML SDV IVPUSH PRN (20:26)
[2022-07-29] MEDS ORDERED: MVI, Adult with Vitamin K 10 ML SDV IV ONE (20:34)
[2022-07-29] MEDS ORDERED: 50% Dextrose in Water 50 ML Syringe IVPUSH PRN (20:37)
[2022-07-29] MEDS ORDERED: Glucagon,Human Recombinant 1 MG Vial IM PRN (20:37)
[2022-07-29] MEDS ORDERED: Dextrose 5%-0.9% NaCl 1,000 ML IV SCH (20:45)
[2022-07-29] MEDS ORDERED: VITAMIN K IV ONE ×2 (21:00)
[2022-07-29] MEDS ORDERED: SODIUM CHLORIDE IV ONE ×2 (21:00)
[2022-07-29] MEDS ORDERED: Insulin Glarg,Human.Rec.Analog 100 Unit/ML SUBCUT SCH (21:00)
[2022-07-29] MEDS ORDERED: MVI IV ONE ×2 (21:00)
[2022-07-29] MEDS: Saccharomyces Boulardii (Probiotic) 250 MG Cap PO SCH (21:52)
[2022-07-29] MEDS: Melatonin 3 MG Tab PO SCH (21:52)
[2022-07-29] MEDS: Carvedilol 25 MG Tab PO SCH (21:52)
[2022-07-30] MEDS: Piperacillin/Tazobactam 3.375 GM in Sodium Chloride 0.9% 100 ML IV SCH ×3 (05:53→17:20)
[2022-07-30] MEDS: Furosemide 40 MG Tab PO SCH ×2 (05:53→16:01)
[2022-07-30 07:14] LABS: ANION GAP 10.3 mEq/L (7-13)
[2022-07-30] MEDS: metroNIDAZOLE/Normal Saline 500 MG in Premix Bag 100 BAG IV SCH ×2 (07:36→16:01)
[2022-07-30] MEDS: Insulin Lispro 100 Units/ML 3 ML Vial SUBCUT SCH ×3 (08:50→17:20)
[2022-07-30] MEDS: Carvedilol 25 MG Tab PO SCH ×2 (08:53→20:38)
[2022-07-30] MEDS: Cyanocobalamin (Vitamin B12) 100 MCG Tab PO SCH (08:53)
[2022-07-30] MEDS: Saccharomyces Boulardii (Probiotic) 250 MG Cap PO SCH ×2 (08:53→20:38)
[2022-07-30] MEDS: amLODIPine 5 MG Tab PO SCH (08:54)
[2022-07-30] MEDS: Lisinopril 20 MG Tab PO SCH (08:54)
[2022-07-30] MEDS: Famotidine 20 MG Tab PO SCH (08:54)
[2022-07-30] MEDS: Multivitamin Tab PO SCH (08:55)
[2022-07-30] MEDS: Enoxaparin 40 MG/0.4 ML Syringe SUBCUT SCH (08:55)
[2022-07-30] MEDS: Insulin Glarg,Human.Rec.Analog 100 Unit/ML SUBCUT SCH ×2 (08:57→20:47)
[2022-07-30] MEDS ORDERED: CRANBERRY 400 MG PO SCH (09:00)
[2022-07-30] MEDS: Melatonin 3 MG Tab PO SCH (20:39)
[2022-07-30] MEDS: Ibuprofen 400 MG Tab PO PRN (20:39)
[2022-07-31] MEDS: Piperacillin/Tazobactam 3.375 GM in Sodium Chloride 0.9% 100 ML IV SCH ×4 (00:31→18:19)
[2022-07-31] MEDS: metroNIDAZOLE/Normal Saline 500 MG in Premix Bag 100 BAG IV SCH ×3 (01:23→16:30)
[2022-07-31] MEDS: Furosemide 40 MG Tab PO SCH ×2 (05:55→16:29)
[2022-07-31 07:02] LABS: ANION GAP 10.8 mEq/L (7-13)
[2022-07-31] MEDS: Insulin Lispro 100 Units/ML 3 ML Vial SUBCUT SCH ×3 (08:59→18:20)
[2022-07-31] MEDS: Famotidine 20 MG Tab PO SCH (09:00)
[2022-07-31] MEDS: Cyanocobalamin (Vitamin B12) 100 MCG Tab PO SCH (09:00)
[2022-07-31] MEDS: Saccharomyces Boulardii (Probiotic) 250 MG Cap PO SCH ×2 (09:00→21:17)
[2022-07-31] MEDS: Enoxaparin 40 MG/0.4 ML Syringe SUBCUT SCH (09:01)
[2022-07-31] MEDS: Insulin Glarg,Human.Rec.Analog 100 Unit/ML SUBCUT SCH ×2 (09:02→21:18)
[2022-07-31] MEDS: Multivitamin Tab PO SCH (09:02)
[2022-07-31] MEDS: Carvedilol 25 MG Tab PO SCH ×2 (09:06→21:17)
[2022-07-31] MEDS: Lisinopril 20 MG Tab PO SCH (09:06)
[2022-07-31] MEDS: amLODIPine 5 MG Tab PO SCH (09:06)
[2022-07-31] MEDS: Ibuprofen 400 MG Tab PO PRN (10:13)
[2022-07-31] MEDS ORDERED: Potassium Chloride 10 MEQ Tab.ER PO ONE (18:00)
[2022-07-31] MEDS: Melatonin 3 MG Tab PO SCH (21:17)
[2022-08-01] MEDS: Piperacillin/Tazobactam 3.375 GM in Sodium Chloride 0.9% 100 ML IV SCH ×2 (00:25→05:55)
[2022-08-01] MEDS: Ibuprofen 400 MG Tab PO PRN ×2 (00:41→13:54)
[2022-08-01] MEDS: metroNIDAZOLE/Normal Saline 500 MG in Premix Bag 100 BAG IV SCH ×2 (01:31→10:05)
[2022-08-01] MEDS: Furosemide 40 MG Tab PO SCH ×2 (05:57→16:16)
[2022-08-01 06:55] LABS: ANION GAP 10.1 mEq/L (7-13)
[2022-08-01] MEDS ORDERED: Magnesium Sulfate/Water 2 GM in Premix Bag 1 BAG IV ONE ×2 (09:00→21:00)
[2022-08-01] MEDS: Saccharomyces Boulardii (Probiotic) 250 MG Cap PO SCH ×2 (09:17→20:32)
[2022-08-01] MEDS: Cyanocobalamin (Vitamin B12) 100 MCG Tab PO SCH ×2 (09:17→09:18)
[2022-08-01] MEDS: Enoxaparin 40 MG/0.4 ML Syringe SUBCUT SCH (09:17)
[2022-08-01] MEDS: Carvedilol 25 MG Tab PO SCH ×2 (09:18→17:17)
[2022-08-01] MEDS: Lisinopril 20 MG Tab PO SCH (09:18)
[2022-08-01] MEDS: Famotidine 20 MG Tab PO SCH (09:18)
[2022-08-01] MEDS: Multivitamin Tab PO SCH (09:18)
[2022-08-01] MEDS: amLODIPine 5 MG Tab PO SCH (09:19)
[2022-08-01] MEDS: Insulin Glarg,Human.Rec.Analog 100 Unit/ML SUBCUT SCH ×2 (09:21→20:43)
[2022-08-01] MEDS: Ciprofloxacin in D5W 400 MG in Premix Bag 1 BAG IV SCH ×4 (09:45→20:31)
[2022-08-01] MEDS: Insulin Lispro 100 Units/ML 3 ML Vial SUBCUT SCH ×3 (09:50→17:18)
[2022-08-01] MEDS: guaiFENesin 600 MG Tab.ER PO SCH (20:31)
[2022-08-01] MEDS: atorvaSTATin 10 MG Tab PO SCH (20:31)
[2022-08-01] MEDS: Iron Polysaccharides Complex 150 MG Cap PO SCH (20:32)
[2022-08-01] MEDS: Melatonin 3 MG Tab PO SCH (20:33)
[2022-08-02] MEDS: Furosemide 40 MG Tab PO SCH ×2 (06:05→16:47)
[2022-08-02] MEDS ORDERED: Potassium Chloride 10 MEQ Tab.ER PO ONE ×2 (09:08→17:00)
[2022-08-02] MEDS: Lisinopril 20 MG Tab PO SCH (09:19)
[2022-08-02] MEDS: Famotidine 20 MG Tab PO SCH (09:19)
[2022-08-02] MEDS: amLODIPine 5 MG Tab PO SCH (09:22)
[2022-08-02] MEDS: Carvedilol 25 MG Tab PO SCH ×3 (09:24→17:23)
[2022-08-02] MEDS: Aspirin 81 MG Tab.EC PO SCH (09:24)
[2022-08-02] MEDS: guaiFENesin 600 MG Tab.ER PO SCH ×2 (09:24→21:04)
[2022-08-02] MEDS: Ascorbic Acid 500 MG Tab PO SCH (09:25)
[2022-08-02] MEDS: Cyanocobalamin (Vitamin B12) 100 MCG Tab PO SCH (09:25)
[2022-08-02] MEDS: Iron Polysaccharides Complex 150 MG Cap PO SCH ×2 (09:25→21:04)
[2022-08-02] MEDS: Ciprofloxacin in D5W 400 MG in Premix Bag 1 BAG IV SCH ×4 (09:30→21:08)
[2022-08-02] MEDS: Enoxaparin 40 MG/0.4 ML Syringe SUBCUT SCH (09:31)
[2022-08-02] MEDS: Insulin Lispro 100 Units/ML 3 ML Vial SUBCUT SCH ×3 (09:31→16:51)
[2022-08-02] MEDS: Insulin Glarg,Human.Rec.Analog 100 Unit/ML SUBCUT SCH ×2 (09:33→21:14)
[2022-08-02] MEDS: Multivitamin Tab PO SCH (09:41)
[2022-08-02] MEDS: Ibuprofen 400 MG Tab PO PRN (10:15)
[2022-08-02] MEDS: Saccharomyces Boulardii (Probiotic) 250 MG Cap PO SCH ×2 (10:28→21:07)
[2022-08-02] MEDS ORDERED: diphenhydrAMINE/Zinc Acetate 2% Crm 28.4 GM Tube TOP PRN (20:35)
[2022-08-02] MEDS ORDERED: Nystatin Topical Powder 30 GM Bottle TOP PRN (21:00)
[2022-08-02] MEDS: Melatonin 3 MG Tab PO SCH (21:04)
[2022-08-02] MEDS: atorvaSTATin 10 MG Tab PO SCH (21:04)
[2022-08-02] MEDS: Sodium Chloride 0.9% 10 ML Syringe FLUSH PRN (21:05)
[2022-08-03] MEDS: Furosemide 40 MG Tab PO SCH (05:33)
[2022-08-03] MEDS: Carvedilol 25 MG Tab PO SCH (07:51)
[2022-08-03] MEDS: Insulin Lispro 100 Units/ML 3 ML Vial SUBCUT SCH ×2 (07:52→11:58)
[2022-08-03] MEDS ORDERED: Potassium Chloride 10 MEQ Tab.ER PO SCH (08:00)
[2022-08-03] MEDS: Ciprofloxacin in D5W 400 MG in Premix Bag 1 BAG IV SCH ×2 (09:21)
[2022-08-03] MEDS: Cyanocobalamin (Vitamin B12) 100 MCG Tab PO SCH (09:21)
[2022-08-03] MEDS: Lisinopril 20 MG Tab PO SCH (09:22)
[2022-08-03] MEDS: Multivitamin Tab PO SCH (09:23)
[2022-08-03] MEDS: Famotidine 20 MG Tab PO SCH (09:23)
[2022-08-03] MEDS: guaiFENesin 600 MG Tab.ER PO SCH (09:23)
[2022-08-03] MEDS: Ascorbic Acid 500 MG Tab PO SCH (09:23)
[2022-08-03] MEDS: Saccharomyces Boulardii (Probiotic) 250 MG Cap PO SCH (09:23)
[2022-08-03] MEDS: Aspirin 81 MG Tab.EC PO SCH (09:23)
[2022-08-03] MEDS: Enoxaparin 40 MG/0.4 ML Syringe SUBCUT SCH (09:23)
[2022-08-03] MEDS: Insulin Glarg,Human.Rec.Analog 100 Unit/ML SUBCUT SCH (09:24)
[2022-08-03] MEDS: Iron Polysaccharides Complex 150 MG Cap PO SCH (09:24)
[2022-08-03] MEDS: amLODIPine 5 MG Tab PO SCH (09:24)
[2022-08-03 09:41] LABS: ANION GAP 9.5 mEq/L (7-13)
[2022-08-03 11:55] VITALS: BP 173/52; PULSE 72
[2022-08-03] MEDS ORDERED: metFORMIN 500 MG Tab PO SCH (18:00)
== END 2022-08-03 13:03 | disposition home or self-care (01) | DRG 872 ==
LOC: DL.ED 16:09 → DL.MS 19:33
PROVIDERS: ADMIT Internal Medicine; ATTEND Internal Medicine
DX: A41.9 Sepsis, unspecified organism (principal); A41.59 Other Gram-negative sepsis; K57.92 Diverticulitis of intestine, part unspecified, without perforation or abscess without bleeding; K57.32 Diverticulitis of large intestine without perforation or abscess without bleeding; K76.6 Portal hypertension; E87.1 Hypo-osmolality and hyponatremia; K52.9 Noninfective gastroenteritis and colitis, unspecified; E87.6 Hypokalemia; E11.65 Type 2 diabetes mellitus with hyperglycemia; R65.20 Severe sepsis without septic shock; Z20.822 Contact with and (suspected) exposure to COVID-19; E88.09 Other disorders of plasma-protein metabolism, not elsewhere classified; Z88.8 Allergy status to other drugs, medicaments and biological substances; Z79.4 Long term (current) use of insulin; K43.9 Ventral hernia without obstruction or gangrene; K74.60 Unspecified cirrhosis of liver; E83.42 Hypomagnesemia; E87.8 Other disorders of electrolyte and fluid balance, not elsewhere classified; D69.59 Other secondary thrombocytopenia; H54.7 Unspecified visual loss; I11.0 Hypertensive heart disease with heart failure; I50.9 Heart failure, unspecified; J44.9 Chronic obstructive pulmonary disease, unspecified; F41.9 Anxiety disorder, unspecified; E11.40 Type 2 diabetes mellitus with diabetic neuropathy, unspecified; Z86.16 Personal history of COVID-19; E78.5 Hyperlipidemia, unspecified; I25.10 Atherosclerotic heart disease of native coronary artery without angina pectoris; E11.42 Type 2 diabetes mellitus with diabetic polyneuropathy; M81.0 Age-related osteoporosis without current pathological fracture; R26.81 Unsteadiness on feet; D50.9 Iron deficiency anemia, unspecified; E53.8 Deficiency of other specified B group vitamins; K21.9 Gastro-esophageal reflux disease without esophagitis; M19.90 Unspecified osteoarthritis, unspecified site; E78.00 Pure hypercholesterolemia, unspecified; Z96.649 Presence of unspecified artificial hip joint; Z28.9 Immunization not carried out for unspecified reason; Z91.09 Other allergy status, other than to drugs and biological substances; Z90.49 Acquired absence of other specified parts of digestive tract; Z79.899 Other long term (current) drug therapy
CPT/HCPCS: 0241U; 36415; 71045; 74177; 80053; 81001; 82947; 83605; 83690; 83735; 83880; 84145; 84484; 85025; 86140; 87040; 87077; 87081; 87186; 87430; 96365; 96367; 96368; 97161-GP; 97165-GO; 97530-GP; 99233; 99238; 99285-25; A9270-GY; C1758; J0692; J0744; J1650; J1815-GY; J2543; J3475; J3490; J7030; J7042; J7050; Q9967

== ENCOUNTER 2022-11-17 08:32 | Emergency (ER) | payer MEDICARE, OTHER ==
[2022-11-17 08:45] VITALS: BP 159/49; PULSE 75
[2022-11-17] MEDS ORDERED: Morphine 4 MG/ML Syringe IVPUSH ONE (10:44)
[2022-11-17 10:56] LABS: ANION GAP 13.8 mEq/L (7-13)
== END 2022-11-17 11:10 ==
LOC: DL.ED 08:32
DX: S72.402A Unspecified fracture of lower end of left femur, initial encounter for closed fracture (principal); W18.30XA Fall on same level, unspecified, initial encounter; Y92.000 Kitchen of unspecified non-institutional (private) residence as the place of occurrence of the external cause
CPT/HCPCS: 36415; 70450; 71045; 73562; 80053; 84484; 85025; 93005; 96374; 99285; J2270; 93010; 99284

== ENCOUNTER 2022-11-22 10:46 | Inpatient (IN) | payer MEDICARE, OTHER ==
[2022-11-22] MEDS ORDERED: Albuterol 0.083% 2.5 MG/3 ML Neb Soln INH PRN (18:35)
[2022-11-22] MEDS ORDERED: oxyCODONE 5 MG Tab PO PRN (18:37)
[2022-11-22] MEDS ORDERED: Glucagon,Human Recombinant 1 MG Vial IM PRN (18:39)
[2022-11-22] MEDS ORDERED: 50% Dextrose in Water 50 ML Syringe IVPUSH PRN (18:39)
[2022-11-22] MEDS ORDERED: Polyethylene Glycol 3350 Powder 17 GM Packet PO PRN (19:07)
[2022-11-22] MEDS ORDERED: Magnesium Hydroxide 400 MG/5 ML Susp 30 ML Cup PO PRN (19:07)
[2022-11-22] MEDS ORDERED: Albuterol/Ipratropium 3.0-0.5 MG/3 ML Neb Soln NEB PRN (19:07)
[2022-11-22] MEDS ORDERED: Ondansetron 4 MG Tab.DIS PO PRN (19:07)
[2022-11-22] MEDS ORDERED: hydrALAZINE 20 MG/ML SDV IVPUSH PRN (19:16)
[2022-11-22] MEDS ORDERED: Metoprolol Tartrate 5 MG/5 ML SDV IVPUSH PRN (19:16)
[2022-11-22] MEDS: Ascorbic Acid 500 MG Tab PO SCH (20:30)
[2022-11-22] MEDS: Melatonin 3 MG Tab PO SCH (20:30)
[2022-11-22] MEDS: Furosemide 20 MG Tab PO SCH (20:31)
[2022-11-22] MEDS: atorvaSTATin 10 MG Tab PO SCH (20:31)
[2022-11-22] MEDS: Carvedilol 25 MG Tab PO SCH (20:31)
[2022-11-22] MEDS: Iron Polysaccharides Complex 150 MG Cap PO SCH (20:32)
[2022-11-22] MEDS: metFORMIN 500 MG Tab PO SCH (20:38)
[2022-11-22] MEDS: Fluticasone NASAL Spray 16 GM Bottle NASBOTH SCH (20:38)
[2022-11-22] MEDS: REMOVE LIDOCAINE TRDERM SCH (20:39)
[2022-11-22] MEDS: oxyCODONE 5 MG Tab PO PRN (20:53)
[2022-11-22] MEDS ORDERED: Non-Formulary Medication 1 Each (Insulin Detemir 100 UNIT/ML Insuln.Pen) SUBCUT SCH (21:00)
[2022-11-22] MEDS ORDERED: Insulin Glarg,Human.Rec.Analog 100 Unit/ML SUBCUT SCH (21:00)
[2022-11-23] MEDS: metFORMIN 500 MG Tab PO SCH ×2 (08:05→17:03)
[2022-11-23] MEDS: Insulin Lispro 100 Units/ML 3 ML Vial SUBCUT SCH ×3 (08:10→17:07)
[2022-11-23] MEDS: Iron Polysaccharides Complex 150 MG Cap PO SCH ×2 (08:14→21:19)
[2022-11-23] MEDS: Lisinopril 20 MG Tab PO SCH (08:15)
[2022-11-23] MEDS: Ascorbic Acid 500 MG Tab PO SCH ×2 (08:15→21:18)
[2022-11-23] MEDS: amLODIPine 5 MG Tab PO SCH (08:15)
[2022-11-23] MEDS: Multivitamin Tab PO SCH (08:15)
[2022-11-23] MEDS: Aspirin 81 MG Tab.Chew PO SCH (08:16)
[2022-11-23] MEDS: Carvedilol 25 MG Tab PO SCH ×2 (08:16→21:18)
[2022-11-23] MEDS: Enoxaparin 40 MG/0.4 ML Syringe SUBCUT SCH (08:16)
[2022-11-23] MEDS: Furosemide 20 MG Tab PO SCH ×2 (08:16→13:48)
[2022-11-23] MEDS: Famotidine 20 MG Tab PO SCH (08:16)
[2022-11-23] MEDS: Fluticasone NASAL Spray 16 GM Bottle NASBOTH SCH ×3 (08:17→21:18)
[2022-11-23] MEDS: Lidocaine 5% 700 MG Patch TOP SCH (08:19)
[2022-11-23] MEDS: Cyanocobalamin (Vitamin B12) 100 MCG Tab PO SCH (08:39)
[2022-11-23] MEDS ORDERED: Insulin Glarg,Human.Rec.Analog 100 Unit/ML SUBCUT SCH (09:00)
[2022-11-23] MEDS: atorvaSTATin 10 MG Tab PO SCH (21:18)
[2022-11-23] MEDS: Melatonin 3 MG Tab PO SCH (21:18)
[2022-11-23] MEDS: REMOVE LIDOCAINE TRDERM SCH (21:19)
[2022-11-23] MEDS: oxyCODONE 5 MG Tab PO PRN (21:33)
[2022-11-23] MEDS: Insulin Glarg,Human.Rec.Analog 100 Unit/ML SUBCUT SCH (21:35)
[2022-11-24] MEDS: guaiFENesin/Dextromethorphan 100-10 MG/5 ML Soln 5 ML Cup PO PRN (00:43)
[2022-11-24] MEDS: ALENDRONATE SODIUM 70 MG PO SCH (06:25)
[2022-11-24] MEDS: Lidocaine 5% 700 MG Patch TOP SCH (08:02)
[2022-11-24] MEDS: Multivitamin Tab PO SCH (08:03)
[2022-11-24] MEDS: Aspirin 81 MG Tab.Chew PO SCH (08:03)
[2022-11-24] MEDS: Cyanocobalamin (Vitamin B12) 100 MCG Tab PO SCH (08:03)
[2022-11-24] MEDS: Enoxaparin 40 MG/0.4 ML Syringe SUBCUT SCH (08:03)
[2022-11-24] MEDS: Lisinopril 20 MG Tab PO SCH (08:04)
[2022-11-24] MEDS: Furosemide 20 MG Tab PO SCH ×2 (08:05→15:09)
[2022-11-24] MEDS: Ascorbic Acid 500 MG Tab PO SCH ×2 (08:05→21:28)
[2022-11-24] MEDS: Iron Polysaccharides Complex 150 MG Cap PO SCH ×2 (08:05→21:29)
[2022-11-24] MEDS: metFORMIN 500 MG Tab PO SCH ×2 (08:05→17:06)
[2022-11-24] MEDS: Famotidine 20 MG Tab PO SCH (08:05)
[2022-11-24] MEDS: Carvedilol 25 MG Tab PO SCH ×2 (08:06→21:28)
[2022-11-24] MEDS: Fluticasone NASAL Spray 16 GM Bottle NASBOTH SCH ×2 (08:07→21:29)
[2022-11-24] MEDS: Insulin Lispro 100 Units/ML 3 ML Vial SUBCUT SCH ×3 (08:07→17:07)
[2022-11-24] MEDS: amLODIPine 5 MG Tab PO SCH (08:08)
[2022-11-24] MEDS: Insulin Glarg,Human.Rec.Analog 100 Unit/ML SUBCUT SCH ×2 (08:10→21:29)
[2022-11-24] MEDS: oxyCODONE 5 MG Tab PO PRN ×2 (08:29→18:35)
[2022-11-24] MEDS ORDERED: ALENDRONATE SODIUM 70 MG PO SCH (09:00)
[2022-11-24] MEDS: Melatonin 3 MG Tab PO SCH (21:28)
[2022-11-24] MEDS: atorvaSTATin 10 MG Tab PO SCH (21:29)
[2022-11-24] MEDS: REMOVE LIDOCAINE TRDERM SCH (21:31)
[2022-11-25] MEDS: guaiFENesin/Dextromethorphan 100-10 MG/5 ML Soln 5 ML Cup PO PRN (01:05)
[2022-11-25] MEDS: oxyCODONE 5 MG Tab PO PRN ×3 (01:05→19:11)
[2022-11-25] MEDS: Furosemide 20 MG Tab PO SCH ×2 (07:55→13:47)
[2022-11-25] MEDS: metFORMIN 500 MG Tab PO SCH ×2 (07:56→17:07)
[2022-11-25] MEDS: Insulin Lispro 100 Units/ML 3 ML Vial SUBCUT SCH ×3 (07:56→17:06)
[2022-11-25] MEDS: Enoxaparin 40 MG/0.4 ML Syringe SUBCUT SCH (09:18)
[2022-11-25] MEDS: Lidocaine 5% 700 MG Patch TOP SCH (09:18)
[2022-11-25] MEDS: Carvedilol 25 MG Tab PO SCH ×2 (09:19→20:43)
[2022-11-25] MEDS: Famotidine 20 MG Tab PO SCH (09:19)
[2022-11-25] MEDS: Aspirin 81 MG Tab.Chew PO SCH (09:19)
[2022-11-25] MEDS: Ascorbic Acid 500 MG Tab PO SCH ×2 (09:19→20:44)
[2022-11-25] MEDS: Iron Polysaccharides Complex 150 MG Cap PO SCH ×2 (09:19→20:44)
[2022-11-25] MEDS: Lisinopril 20 MG Tab PO SCH (09:19)
[2022-11-25] MEDS: Multivitamin Tab PO SCH (09:19)
[2022-11-25] MEDS: amLODIPine 5 MG Tab PO SCH (09:22)
[2022-11-25] MEDS: Cyanocobalamin (Vitamin B12) 100 MCG Tab PO SCH (09:22)
[2022-11-25] MEDS: Insulin Glarg,Human.Rec.Analog 100 Unit/ML SUBCUT SCH ×2 (09:23→20:45)
[2022-11-25] MEDS: Fluticasone NASAL Spray 16 GM Bottle NASBOTH SCH ×2 (09:24→20:45)
[2022-11-25] MEDS: Loperamide 2 MG Cap PO PRN (14:20)
[2022-11-25] MEDS: atorvaSTATin 10 MG Tab PO SCH (20:42)
[2022-11-25] MEDS: Melatonin 3 MG Tab PO SCH (20:43)
[2022-11-25] MEDS: REMOVE LIDOCAINE TRDERM SCH (20:47)
[2022-11-26] MEDS: oxyCODONE 5 MG Tab PO PRN ×3 (06:00→20:24)
[2022-11-26] MEDS: Insulin Lispro 100 Units/ML 3 ML Vial SUBCUT SCH ×3 (08:18→17:00)
[2022-11-26] MEDS: Insulin Glarg,Human.Rec.Analog 100 Unit/ML SUBCUT SCH ×2 (08:19→20:32)
[2022-11-26] MEDS: Famotidine 20 MG Tab PO SCH (08:21)
[2022-11-26] MEDS: Ascorbic Acid 500 MG Tab PO SCH ×2 (08:21→20:27)
[2022-11-26] MEDS: Carvedilol 25 MG Tab PO SCH ×2 (08:22→20:26)
[2022-11-26] MEDS: Iron Polysaccharides Complex 150 MG Cap PO SCH ×2 (08:22→20:24)
[2022-11-26] MEDS: Furosemide 20 MG Tab PO SCH ×2 (08:22→13:10)
[2022-11-26] MEDS: amLODIPine 5 MG Tab PO SCH (08:22)
[2022-11-26] MEDS: Multivitamin Tab PO SCH (08:23)
[2022-11-26] MEDS: metFORMIN 500 MG Tab PO SCH ×2 (08:23→17:02)
[2022-11-26] MEDS: Cyanocobalamin (Vitamin B12) 100 MCG Tab PO SCH (08:23)
[2022-11-26] MEDS: Aspirin 81 MG Tab.Chew PO SCH (08:23)
[2022-11-26] MEDS: Lisinopril 20 MG Tab PO SCH (08:23)
[2022-11-26] MEDS: Fluticasone NASAL Spray 16 GM Bottle NASBOTH SCH ×2 (08:24→20:28)
[2022-11-26] MEDS: Enoxaparin 40 MG/0.4 ML Syringe SUBCUT SCH (08:25)
[2022-11-26] MEDS: Lidocaine 5% 700 MG Patch TOP SCH (08:25)
[2022-11-26] MEDS: Acetaminophen 325 MG Tab PO PRN (20:23)
[2022-11-26] MEDS: atorvaSTATin 10 MG Tab PO SCH (20:25)
[2022-11-26] MEDS: Melatonin 3 MG Tab PO SCH (20:25)
[2022-11-26] MEDS: REMOVE LIDOCAINE TRDERM SCH (20:28)
[2022-11-27] MEDS: guaiFENesin/Dextromethorphan 100-10 MG/5 ML Soln 5 ML Cup PO PRN ×2 (00:13→22:11)
[2022-11-27] MEDS: Enoxaparin 40 MG/0.4 ML Syringe SUBCUT SCH (08:31)
[2022-11-27] MEDS: Cyanocobalamin (Vitamin B12) 100 MCG Tab PO SCH (08:32)
[2022-11-27] MEDS: Famotidine 20 MG Tab PO SCH (08:32)
[2022-11-27] MEDS: metFORMIN 500 MG Tab PO SCH ×2 (08:32→19:54)
[2022-11-27] MEDS: Lisinopril 20 MG Tab PO SCH (08:32)
[2022-11-27] MEDS: Ascorbic Acid 500 MG Tab PO SCH ×2 (08:32→20:01)
[2022-11-27] MEDS: Iron Polysaccharides Complex 150 MG Cap PO SCH ×2 (08:33→20:00)
[2022-11-27] MEDS: amLODIPine 5 MG Tab PO SCH (08:33)
[2022-11-27] MEDS: Lidocaine 5% 700 MG Patch TOP SCH (08:33)
[2022-11-27] MEDS: Furosemide 20 MG Tab PO SCH ×2 (08:33→13:53)
[2022-11-27] MEDS: Aspirin 81 MG Tab.Chew PO SCH (08:33)
[2022-11-27] MEDS: Multivitamin Tab PO SCH (08:33)
[2022-11-27] MEDS: Insulin Lispro 100 Units/ML 3 ML Vial SUBCUT SCH ×3 (08:34→18:33)
[2022-11-27] MEDS: Carvedilol 25 MG Tab PO SCH ×2 (08:34→20:02)
[2022-11-27] MEDS: Fluticasone NASAL Spray 16 GM Bottle NASBOTH SCH ×2 (08:35→20:03)
[2022-11-27] MEDS: Insulin Glarg,Human.Rec.Analog 100 Unit/ML SUBCUT SCH ×2 (08:35→20:05)
[2022-11-27] MEDS: oxyCODONE 5 MG Tab PO PRN ×2 (11:28→19:59)
[2022-11-27] MEDS: Nitrofurantoin Monohydrate/Macrocrystalline 100 MG Cap PO SCH ×2 (11:28→20:00)
[2022-11-27] MEDS: Acetaminophen 325 MG Tab PO PRN (19:58)
[2022-11-27] MEDS: Loperamide 2 MG Cap PO PRN (20:00)
[2022-11-27] MEDS: atorvaSTATin 10 MG Tab PO SCH (20:01)
[2022-11-27] MEDS: Melatonin 3 MG Tab PO SCH (20:01)
[2022-11-27] MEDS: REMOVE LIDOCAINE TRDERM SCH (20:04)
[2022-11-28] MEDS: Insulin Lispro 100 Units/ML 3 ML Vial SUBCUT SCH ×3 (08:08→17:33)
[2022-11-28] MEDS: Carvedilol 25 MG Tab PO SCH ×2 (08:09→20:59)
[2022-11-28] MEDS: Furosemide 20 MG Tab PO SCH ×2 (08:09→13:11)
[2022-11-28] MEDS: Iron Polysaccharides Complex 150 MG Cap PO SCH ×2 (08:09→20:59)
[2022-11-28] MEDS: Multivitamin Tab PO SCH (08:09)
[2022-11-28] MEDS: Nitrofurantoin Monohydrate/Macrocrystalline 100 MG Cap PO SCH ×2 (08:09→17:33)
[2022-11-28] MEDS: Insulin Glarg,Human.Rec.Analog 100 Unit/ML SUBCUT SCH ×2 (08:09→20:58)
[2022-11-28] MEDS: amLODIPine 5 MG Tab PO SCH (08:10)
[2022-11-28] MEDS: metFORMIN 500 MG Tab PO SCH ×2 (08:10→17:33)
[2022-11-28] MEDS: Lisinopril 20 MG Tab PO SCH (08:10)
[2022-11-28] MEDS: Famotidine 20 MG Tab PO SCH (08:10)
[2022-11-28] MEDS: Cyanocobalamin (Vitamin B12) 100 MCG Tab PO SCH (08:10)
[2022-11-28] MEDS: Ascorbic Acid 500 MG Tab PO SCH ×2 (08:10→20:59)
[2022-11-28] MEDS: Enoxaparin 40 MG/0.4 ML Syringe SUBCUT SCH (08:11)
[2022-11-28] MEDS: Fluticasone NASAL Spray 16 GM Bottle NASBOTH SCH ×3 (08:11→21:03)
[2022-11-28] MEDS: Lidocaine 5% 700 MG Patch TOP SCH (08:11)
[2022-11-28] MEDS: Aspirin 81 MG Tab.Chew PO SCH (08:11)
[2022-11-28] MEDS: oxyCODONE 5 MG Tab PO PRN ×2 (13:32→19:38)
[2022-11-28] MEDS: Acetaminophen 325 MG Tab PO PRN (19:38)
[2022-11-28] MEDS: Melatonin 3 MG Tab PO SCH (20:59)
[2022-11-28] MEDS: atorvaSTATin 10 MG Tab PO SCH (21:00)
[2022-11-28] MEDS: REMOVE LIDOCAINE TRDERM SCH (21:02)
[2022-11-28] MEDS: guaiFENesin/Dextromethorphan 100-10 MG/5 ML Soln 5 ML Cup PO PRN (22:50)
[2022-11-29] MEDS: Lidocaine 5% 700 MG Patch TOP SCH (08:41)
[2022-11-29] MEDS: Carvedilol 25 MG Tab PO SCH ×2 (08:41→20:12)
[2022-11-29] MEDS: Enoxaparin 40 MG/0.4 ML Syringe SUBCUT SCH (08:41)
[2022-11-29] MEDS: Cyanocobalamin (Vitamin B12) 100 MCG Tab PO SCH (08:42)
[2022-11-29] MEDS: Nitrofurantoin Monohydrate/Macrocrystalline 100 MG Cap PO SCH ×2 (08:42→17:39)
[2022-11-29] MEDS: Iron Polysaccharides Complex 150 MG Cap PO SCH ×2 (08:42→20:12)
[2022-11-29] MEDS: Ascorbic Acid 500 MG Tab PO SCH ×2 (08:42→20:12)
[2022-11-29] MEDS: Multivitamin Tab PO SCH (08:42)
[2022-11-29] MEDS: Lisinopril 20 MG Tab PO SCH (08:42)
[2022-11-29] MEDS: Famotidine 20 MG Tab PO SCH (08:42)
[2022-11-29] MEDS: metFORMIN 500 MG Tab PO SCH ×2 (08:43→17:39)
[2022-11-29] MEDS: amLODIPine 5 MG Tab PO SCH (08:43)
[2022-11-29] MEDS: Furosemide 20 MG Tab PO SCH ×2 (08:43→13:13)
[2022-11-29] MEDS: Aspirin 81 MG Tab.Chew PO SCH (08:44)
[2022-11-29] MEDS: Insulin Lispro 100 Units/ML 3 ML Vial SUBCUT SCH ×3 (08:46→17:42)
[2022-11-29] MEDS: Insulin Glarg,Human.Rec.Analog 100 Unit/ML SUBCUT SCH ×2 (08:47→20:14)
[2022-11-29] MEDS: Fluticasone NASAL Spray 16 GM Bottle NASBOTH SCH (08:47)
[2022-11-29] MEDS ORDERED: Fluticasone NASAL Spray 16 GM Bottle NASBOTH PRN (10:52)
[2022-11-29] MEDS: oxyCODONE 5 MG Tab PO PRN ×2 (13:14→19:28)
[2022-11-29] MEDS: Acetaminophen 325 MG Tab PO PRN (13:15)
[2022-11-29] MEDS: Melatonin 3 MG Tab PO SCH (20:12)
[2022-11-29] MEDS: atorvaSTATin 10 MG Tab PO SCH (20:12)
[2022-11-29] MEDS: REMOVE LIDOCAINE TRDERM SCH (20:14)
[2022-11-30] MEDS: Insulin Lispro 100 Units/ML 3 ML Vial SUBCUT SCH ×3 (08:37→17:13)
[2022-11-30] MEDS: Iron Polysaccharides Complex 150 MG Cap PO SCH ×2 (08:38→20:09)
[2022-11-30] MEDS: Nitrofurantoin Monohydrate/Macrocrystalline 100 MG Cap PO SCH ×2 (08:38→17:25)
[2022-11-30] MEDS: Furosemide 20 MG Tab PO SCH ×2 (08:38→14:29)
[2022-11-30] MEDS: amLODIPine 5 MG Tab PO SCH (08:38)
[2022-11-30] MEDS: Aspirin 81 MG Tab.Chew PO SCH (08:38)
[2022-11-30] MEDS: Carvedilol 25 MG Tab PO SCH ×2 (08:38→20:09)
[2022-11-30] MEDS: metFORMIN 500 MG Tab PO SCH ×2 (08:38→17:25)
[2022-11-30] MEDS: Lisinopril 20 MG Tab PO SCH (08:38)
[2022-11-30] MEDS: Enoxaparin 40 MG/0.4 ML Syringe SUBCUT SCH (08:39)
[2022-11-30] MEDS: Cyanocobalamin (Vitamin B12) 100 MCG Tab PO SCH (08:39)
[2022-11-30] MEDS: Lidocaine 5% 700 MG Patch TOP SCH (08:39)
[2022-11-30] MEDS: Ascorbic Acid 500 MG Tab PO SCH ×2 (08:39→20:08)
[2022-11-30] MEDS: Famotidine 20 MG Tab PO SCH (08:39)
[2022-11-30] MEDS: Moxifloxacin 0.5% Ophth Soln 3 ML Bottle EYELF SCH ×3 (08:39→20:13)
[2022-11-30] MEDS: Multivitamin Tab PO SCH (08:40)
[2022-11-30] MEDS ORDERED: amLODIPine 5 MG Tab PO SCH (09:00)
[2022-11-30] MEDS: oxyCODONE 5 MG Tab PO PRN ×2 (09:32→20:08)
[2022-11-30] MEDS: Insulin Glarg,Human.Rec.Analog 100 Unit/ML SUBCUT SCH ×2 (09:33→20:14)
[2022-11-30] MEDS ORDERED: amLODIPine 5 MG Tab PO ONE ×2 (09:45→12:45)
[2022-11-30] MEDS: Acetaminophen 325 MG Tab PO PRN (17:25)
[2022-11-30] MEDS: Melatonin 3 MG Tab PO SCH (20:08)
[2022-11-30] MEDS: atorvaSTATin 10 MG Tab PO SCH (20:09)
[2022-11-30] MEDS: REMOVE LIDOCAINE TRDERM SCH (20:17)
[2022-12-01] MEDS: oxyCODONE 5 MG Tab PO PRN ×3 (06:01→18:11)
[2022-12-01] MEDS: ALENDRONATE SODIUM 70 MG PO SCH (06:01)
[2022-12-01] MEDS: Lidocaine 5% 700 MG Patch TOP SCH (08:29)
[2022-12-01] MEDS: Enoxaparin 40 MG/0.4 ML Syringe SUBCUT SCH (08:30)
[2022-12-01] MEDS: Carvedilol 25 MG Tab PO SCH ×2 (08:31→20:09)
[2022-12-01] MEDS: amLODIPine 5 MG Tab PO SCH (08:32)
[2022-12-01] MEDS: Lisinopril 20 MG Tab PO SCH (08:32)
[2022-12-01] MEDS: metFORMIN 500 MG Tab PO SCH ×2 (08:33→17:38)
[2022-12-01] MEDS: Aspirin 81 MG Tab.Chew PO SCH (08:33)
[2022-12-01] MEDS: Ascorbic Acid 500 MG Tab PO SCH ×2 (08:33→20:09)
[2022-12-01] MEDS: Iron Polysaccharides Complex 150 MG Cap PO SCH ×2 (08:34→20:09)
[2022-12-01] MEDS: Famotidine 20 MG Tab PO SCH (08:34)
[2022-12-01] MEDS: Moxifloxacin 0.5% Ophth Soln 3 ML Bottle EYELF SCH ×3 (08:34→20:13)
[2022-12-01] MEDS: Multivitamin Tab PO SCH (08:35)
[2022-12-01] MEDS: Nitrofurantoin Monohydrate/Macrocrystalline 100 MG Cap PO SCH ×2 (08:35→17:38)
[2022-12-01] MEDS: Insulin Glarg,Human.Rec.Analog 100 Unit/ML SUBCUT SCH ×2 (08:35→20:19)
[2022-12-01] MEDS: Cyanocobalamin (Vitamin B12) 100 MCG Tab PO SCH (08:35)
[2022-12-01] MEDS: Furosemide 20 MG Tab PO SCH ×2 (08:37→14:05)
[2022-12-01] MEDS: Insulin Lispro 100 Units/ML 3 ML Vial SUBCUT SCH ×3 (09:08→17:13)
[2022-12-01] MEDS: Melatonin 3 MG Tab PO SCH (20:09)
[2022-12-01] MEDS: atorvaSTATin 10 MG Tab PO SCH (20:09)
[2022-12-01] MEDS: REMOVE LIDOCAINE TRDERM SCH (20:13)
[2022-12-02] MEDS: oxyCODONE 5 MG Tab PO PRN ×3 (05:06→18:40)
[2022-12-02] MEDS: ALENDRONATE SODIUM 70 MG PO SCH (05:06)
[2022-12-02] MEDS: Furosemide 20 MG Tab PO SCH ×3 (08:28→16:43)
[2022-12-02] MEDS: Multivitamin Tab PO SCH (08:28)
[2022-12-02] MEDS: Nitrofurantoin Monohydrate/Macrocrystalline 100 MG Cap PO SCH (08:28)
[2022-12-02] MEDS: Aspirin 81 MG Tab.Chew PO SCH (08:28)
[2022-12-02] MEDS: Iron Polysaccharides Complex 150 MG Cap PO SCH ×2 (08:28→20:01)
[2022-12-02] MEDS: Cyanocobalamin (Vitamin B12) 100 MCG Tab PO SCH (08:29)
[2022-12-02] MEDS: Famotidine 20 MG Tab PO SCH (08:29)
[2022-12-02] MEDS: Ascorbic Acid 500 MG Tab PO SCH ×2 (08:29→20:01)
[2022-12-02] MEDS: metFORMIN 500 MG Tab PO SCH ×2 (08:29→17:48)
[2022-12-02] MEDS: amLODIPine 5 MG Tab PO SCH (08:30)
[2022-12-02] MEDS: Carvedilol 25 MG Tab PO SCH ×2 (08:30→20:43)
[2022-12-02] MEDS: Lidocaine 5% 700 MG Patch TOP SCH (08:31)
[2022-12-02] MEDS: Moxifloxacin 0.5% Ophth Soln 3 ML Bottle EYELF SCH ×4 (08:31→20:09)
[2022-12-02] MEDS: Lisinopril 20 MG Tab PO SCH (08:31)
[2022-12-02] MEDS: Insulin Glarg,Human.Rec.Analog 100 Unit/ML SUBCUT SCH ×2 (08:32→20:44)
[2022-12-02] MEDS: Enoxaparin 40 MG/0.4 ML Syringe SUBCUT SCH (08:32)
[2022-12-02] MEDS: Insulin Lispro 100 Units/ML 3 ML Vial SUBCUT SCH ×3 (09:48→17:10)
[2022-12-02] MEDS: atorvaSTATin 10 MG Tab PO SCH (20:01)
[2022-12-02] MEDS: Melatonin 3 MG Tab PO SCH (20:01)
[2022-12-02] MEDS: REMOVE LIDOCAINE TRDERM SCH (20:12)
[2022-12-03] MEDS: oxyCODONE 5 MG Tab PO PRN ×3 (01:59→19:47)
[2022-12-03] MEDS: Acetaminophen 325 MG Tab PO PRN ×2 (01:59→19:48)
[2022-12-03] MEDS: Furosemide 20 MG Tab PO SCH ×2 (08:15→14:19)
[2022-12-03] MEDS: Cyanocobalamin (Vitamin B12) 100 MCG Tab PO SCH (08:15)
[2022-12-03] MEDS: Famotidine 20 MG Tab PO SCH (08:15)
[2022-12-03] MEDS: Aspirin 81 MG Tab.Chew PO SCH (08:15)
[2022-12-03] MEDS: Ascorbic Acid 500 MG Tab PO SCH ×2 (08:16→20:42)
[2022-12-03] MEDS: Iron Polysaccharides Complex 150 MG Cap PO SCH ×2 (08:16→20:41)
[2022-12-03] MEDS: metFORMIN 500 MG Tab PO SCH ×2 (08:16→17:10)
[2022-12-03] MEDS: Multivitamin Tab PO SCH (08:16)
[2022-12-03] MEDS: amLODIPine 5 MG Tab PO SCH (08:17)
[2022-12-03] MEDS: Lisinopril 20 MG Tab PO SCH (08:17)
[2022-12-03] MEDS: Carvedilol 25 MG Tab PO SCH ×2 (08:17→20:42)
[2022-12-03] MEDS: Lidocaine 5% 700 MG Patch TOP SCH (08:18)
[2022-12-03] MEDS: Enoxaparin 40 MG/0.4 ML Syringe SUBCUT SCH (08:18)
[2022-12-03] MEDS: Moxifloxacin 0.5% Ophth Soln 3 ML Bottle EYELF SCH ×3 (08:18→20:45)
[2022-12-03] MEDS: Insulin Glarg,Human.Rec.Analog 100 Unit/ML SUBCUT SCH ×2 (08:19→20:44)
[2022-12-03] MEDS: Insulin Lispro 100 Units/ML 3 ML Vial SUBCUT SCH ×3 (08:30→17:11)
[2022-12-03] MEDS: Melatonin 3 MG Tab PO SCH (20:41)
[2022-12-03] MEDS: atorvaSTATin 10 MG Tab PO SCH (20:42)
[2022-12-03] MEDS: REMOVE LIDOCAINE TRDERM SCH (20:46)
[2022-12-04] MEDS: Insulin Lispro 100 Units/ML 3 ML Vial SUBCUT SCH ×3 (07:50→17:23)
[2022-12-04] MEDS: Lidocaine 5% 700 MG Patch TOP SCH (08:21)
[2022-12-04] MEDS: Aspirin 81 MG Tab.Chew PO SCH (08:23)
[2022-12-04] MEDS: Ascorbic Acid 500 MG Tab PO SCH ×2 (08:23→20:23)
[2022-12-04] MEDS: Multivitamin Tab PO SCH (08:23)
[2022-12-04] MEDS: Enoxaparin 40 MG/0.4 ML Syringe SUBCUT SCH (08:23)
[2022-12-04] MEDS: Cyanocobalamin (Vitamin B12) 100 MCG Tab PO SCH (08:23)
[2022-12-04] MEDS: Furosemide 20 MG Tab PO SCH ×2 (08:23→14:04)
[2022-12-04] MEDS: amLODIPine 5 MG Tab PO SCH (08:24)
[2022-12-04] MEDS: Carvedilol 25 MG Tab PO SCH ×2 (08:24→20:24)
[2022-12-04] MEDS: Iron Polysaccharides Complex 150 MG Cap PO SCH ×2 (08:24→20:23)
[2022-12-04] MEDS: Lisinopril 20 MG Tab PO SCH (08:25)
[2022-12-04] MEDS: metFORMIN 500 MG Tab PO SCH ×2 (08:25→17:24)
[2022-12-04] MEDS: Famotidine 20 MG Tab PO SCH (08:25)
[2022-12-04] MEDS: Insulin Glarg,Human.Rec.Analog 100 Unit/ML SUBCUT SCH ×2 (08:31→20:25)
[2022-12-04] MEDS: Moxifloxacin 0.5% Ophth Soln 3 ML Bottle EYELF SCH ×3 (08:33→20:27)
[2022-12-04] MEDS: Acetaminophen 325 MG Tab PO PRN (08:41)
[2022-12-04 15:20] LABS: ANION GAP 12.6 mEq/L (7-13)
[2022-12-04] MEDS: oxyCODONE 5 MG Tab PO PRN (17:23)
[2022-12-04] MEDS: Melatonin 3 MG Tab PO SCH (20:24)
[2022-12-04] MEDS: atorvaSTATin 10 MG Tab PO SCH (20:24)
[2022-12-04] MEDS: REMOVE LIDOCAINE TRDERM SCH (20:26)
[2022-12-05] MEDS: oxyCODONE 5 MG Tab PO PRN ×2 (06:33→18:17)
[2022-12-05] MEDS: Insulin Lispro 100 Units/ML 3 ML Vial SUBCUT SCH ×3 (08:48→17:10)
[2022-12-05] MEDS: Furosemide 20 MG Tab PO SCH ×2 (08:49→15:27)
[2022-12-05] MEDS: metFORMIN 500 MG Tab PO SCH ×2 (09:11→18:16)
[2022-12-05] MEDS: Carvedilol 25 MG Tab PO SCH ×3 (09:17→21:31)
[2022-12-05] MEDS: Aspirin 81 MG Tab.Chew PO SCH (09:17)
[2022-12-05] MEDS: Iron Polysaccharides Complex 150 MG Cap PO SCH ×2 (09:18→21:32)
[2022-12-05] MEDS: Insulin Glarg,Human.Rec.Analog 100 Unit/ML SUBCUT SCH ×2 (09:18→21:33)
[2022-12-05] MEDS: amLODIPine 5 MG Tab PO SCH ×2 (09:19→12:40)
[2022-12-05] MEDS: Enoxaparin 40 MG/0.4 ML Syringe SUBCUT SCH (09:19)
[2022-12-05] MEDS: Famotidine 20 MG Tab PO SCH (09:19)
[2022-12-05] MEDS: Cyanocobalamin (Vitamin B12) 100 MCG Tab PO SCH (09:20)
[2022-12-05] MEDS: Multivitamin Tab PO SCH (09:20)
[2022-12-05] MEDS: Lisinopril 20 MG Tab PO SCH (09:20)
[2022-12-05] MEDS: Moxifloxacin 0.5% Ophth Soln 3 ML Bottle EYELF SCH ×3 (09:20→21:33)
[2022-12-05] MEDS: Ascorbic Acid 500 MG Tab PO SCH ×2 (09:20→21:30)
[2022-12-05] MEDS: Lidocaine 5% 700 MG Patch TOP SCH (09:22)
[2022-12-05] MEDS: Acetaminophen 325 MG Tab PO PRN ×2 (12:40→22:03)
[2022-12-05] MEDS: REMOVE LIDOCAINE TRDERM SCH (21:31)
[2022-12-05] MEDS: Melatonin 3 MG Tab PO SCH (21:32)
[2022-12-05] MEDS: atorvaSTATin 10 MG Tab PO SCH (21:32)
[2022-12-06] MEDS: Insulin Lispro 100 Units/ML 3 ML Vial SUBCUT SCH ×3 (08:26→17:42)
[2022-12-06] MEDS: Lidocaine 5% 700 MG Patch TOP SCH (08:47)
[2022-12-06] MEDS: metFORMIN 500 MG Tab PO SCH ×2 (08:49→17:41)
[2022-12-06] MEDS: Iron Polysaccharides Complex 150 MG Cap PO SCH ×2 (08:49→20:36)
[2022-12-06] MEDS: Enoxaparin 40 MG/0.4 ML Syringe SUBCUT SCH (08:49)
[2022-12-06] MEDS: Aspirin 81 MG Tab.Chew PO SCH (08:49)
[2022-12-06] MEDS: Carvedilol 25 MG Tab PO SCH ×2 (08:50→20:36)
[2022-12-06] MEDS: Famotidine 20 MG Tab PO SCH (08:51)
[2022-12-06] MEDS: Ascorbic Acid 500 MG Tab PO SCH ×2 (08:51→20:37)
[2022-12-06] MEDS: Multivitamin Tab PO SCH (08:51)
[2022-12-06] MEDS: Furosemide 20 MG Tab PO SCH ×2 (08:51→14:17)
[2022-12-06] MEDS: amLODIPine 5 MG Tab PO SCH (08:51)
[2022-12-06] MEDS: Cyanocobalamin (Vitamin B12) 100 MCG Tab PO SCH (08:51)
[2022-12-06] MEDS: Lisinopril 20 MG Tab PO SCH (08:52)
[2022-12-06] MEDS: Insulin Glarg,Human.Rec.Analog 100 Unit/ML SUBCUT SCH ×2 (08:56→20:40)
[2022-12-06] MEDS: Moxifloxacin 0.5% Ophth Soln 3 ML Bottle EYELF SCH ×3 (08:57→20:39)
[2022-12-06] MEDS: Acetaminophen 325 MG Tab PO PRN ×2 (14:20→20:35)
[2022-12-06] MEDS: Melatonin 3 MG Tab PO SCH (20:33)
[2022-12-06] MEDS: atorvaSTATin 10 MG Tab PO SCH (20:33)
[2022-12-06] MEDS: REMOVE LIDOCAINE TRDERM SCH (20:38)
[2022-12-06] MEDS: oxyCODONE 5 MG Tab PO PRN (20:47)
[2022-12-07] MEDS: Insulin Lispro 100 Units/ML 3 ML Vial SUBCUT SCH ×3 (07:57→17:16)
[2022-12-07] MEDS: Iron Polysaccharides Complex 150 MG Cap PO SCH ×2 (08:36→21:30)
[2022-12-07] MEDS: Aspirin 81 MG Tab.Chew PO SCH (08:37)
[2022-12-07] MEDS: Carvedilol 25 MG Tab PO SCH ×2 (08:37→21:30)
[2022-12-07] MEDS: Ascorbic Acid 500 MG Tab PO SCH ×2 (08:38→21:30)
[2022-12-07] MEDS: Cyanocobalamin (Vitamin B12) 100 MCG Tab PO SCH (08:38)
[2022-12-07] MEDS: Lisinopril 20 MG Tab PO SCH (08:38)
[2022-12-07] MEDS: amLODIPine 5 MG Tab PO SCH (08:39)
[2022-12-07] MEDS: Multivitamin Tab PO SCH (08:39)
[2022-12-07] MEDS: Furosemide 20 MG Tab PO SCH ×2 (08:39→14:21)
[2022-12-07] MEDS: Famotidine 20 MG Tab PO SCH (08:39)
[2022-12-07] MEDS: metFORMIN 500 MG Tab PO SCH ×2 (08:39→17:13)
[2022-12-07] MEDS: Enoxaparin 40 MG/0.4 ML Syringe SUBCUT SCH (08:40)
[2022-12-07] MEDS: Lidocaine 5% 700 MG Patch TOP SCH (08:40)
[2022-12-07] MEDS: Insulin Glarg,Human.Rec.Analog 100 Unit/ML SUBCUT SCH ×2 (08:42→21:36)
[2022-12-07] MEDS: Acetaminophen 325 MG Tab PO PRN ×2 (08:49→19:43)
[2022-12-07] MEDS: oxyCODONE 5 MG Tab PO PRN ×2 (11:28→19:41)
[2022-12-07] MEDS: Melatonin 3 MG Tab PO SCH (21:30)
[2022-12-07] MEDS: atorvaSTATin 10 MG Tab PO SCH (21:31)
[2022-12-07] MEDS: REMOVE LIDOCAINE TRDERM SCH (21:35)
[2022-12-08] MEDS: ALENDRONATE SODIUM 70 MG PO SCH (05:27)
[2022-12-08] MEDS: Enoxaparin 40 MG/0.4 ML Syringe SUBCUT SCH (08:06)
[2022-12-08] MEDS: Lisinopril 20 MG Tab PO SCH (08:07)
[2022-12-08] MEDS: amLODIPine 5 MG Tab PO SCH (08:07)
[2022-12-08] MEDS: Lidocaine 5% 700 MG Patch TOP SCH (08:07)
[2022-12-08 08:08] VITALS: BP 142/64
[2022-12-08] MEDS: Carvedilol 25 MG Tab PO SCH (08:08)
[2022-12-08] MEDS: Ascorbic Acid 500 MG Tab PO SCH (08:08)
[2022-12-08] MEDS: metFORMIN 500 MG Tab PO SCH (08:08)
[2022-12-08 08:09] VITALS: PULSE 66
[2022-12-08] MEDS: Multivitamin Tab PO SCH (08:09)
[2022-12-08] MEDS: Famotidine 20 MG Tab PO SCH (08:09)
[2022-12-08] MEDS: Iron Polysaccharides Complex 150 MG Cap PO SCH (08:09)
[2022-12-08] MEDS: Aspirin 81 MG Tab.Chew PO SCH (08:09)
[2022-12-08] MEDS: Furosemide 20 MG Tab PO SCH (08:10)
[2022-12-08] MEDS: Cyanocobalamin (Vitamin B12) 100 MCG Tab PO SCH (08:59)
[2022-12-08] MEDS: Insulin Glarg,Human.Rec.Analog 100 Unit/ML SUBCUT SCH (09:01)
[2022-12-08] MEDS: Insulin Lispro 100 Units/ML 3 ML Vial SUBCUT SCH (10:14)
[2022-12-08] MEDS ORDERED: cefTRIAXone 1 GM Vial IM ONE (10:59)
[2022-12-08] MEDS ORDERED: Ciprofloxacin 500 MG Tab PO ONE (11:03)
[2022-12-08] MEDS: oxyCODONE 5 MG Tab PO PRN (11:27)
== END 2022-12-08 12:00 | disposition home or self-care (01) | DRG 560 ==
LOC: DL.MS 17:09
PROVIDERS: ADMIT Internal Medicine; ATTEND Internal Medicine
DX: S72.462D Displaced supracondylar fracture with intracondylar extension of lower end of left femur, subsequent encounter for closed fracture with routine healing (principal); N39.0 Urinary tract infection, site not specified; D64.89 Other specified anemias; M81.0 Age-related osteoporosis without current pathological fracture; E66.3 Overweight; Z68.25 Body mass index [BMI] 25.0-25.9, adult; E11.65 Type 2 diabetes mellitus with hyperglycemia; H10.9 Unspecified conjunctivitis; R26.81 Unsteadiness on feet; H54.7 Unspecified visual loss; E78.5 Hyperlipidemia, unspecified; I25.10 Atherosclerotic heart disease of native coronary artery without angina pectoris; K74.60 Unspecified cirrhosis of liver; K57.90 Diverticulosis of intestine, part unspecified, without perforation or abscess without bleeding; D50.9 Iron deficiency anemia, unspecified; F41.9 Anxiety disorder, unspecified; E78.00 Pure hypercholesterolemia, unspecified; K21.9 Gastro-esophageal reflux disease without esophagitis; B96.20 Unspecified Escherichia coli [E. coli] as the cause of diseases classified elsewhere; I11.0 Hypertensive heart disease with heart failure; Z91.09 Other allergy status, other than to drugs and biological substances; Z88.8 Allergy status to other drugs, medicaments and biological substances; Z79.82 Long term (current) use of aspirin; Z79.84 Long term (current) use of oral hypoglycemic drugs; Z79.899 Other long term (current) drug therapy; Z86.16 Personal history of COVID-19; Z87.891 Personal history of nicotine dependence; Z28.82 Immunization not carried out because of caregiver refusal
CPT/HCPCS: 36415; 80048; 81001; 82306; 82947; 83735; 85025; 87086; 87088; 87186; 97110-GO; 97110-GP; 97161-GP; 97165-GO; 97530-GO; 97530-GP; 97535-GO; A9270-GY; J1650; J1815-GY

== ENCOUNTER 2022-12-28 17:35 | Inpatient (IN) | payer MEDICARE, OTHER ==
[2022-12-28] MEDS ORDERED: Acetaminophen/HYDROcodone 325-10 MG Tab PO ONE (17:59)
[2022-12-28] MEDS ORDERED: Acetaminophen 325 MG Tab PO ONE (17:59)
[2022-12-28] MEDS ORDERED: cefTRIAXone 1 GM Vial IVPUSH ONE (18:19)
[2022-12-28] MEDS ORDERED: Azithromycin 500 MG in Sodium Chloride 0.9% 250 ML IV ONE (18:20)
[2022-12-28 18:28] LABS: HEMATOCRIT 29.5 % (37.0-47.0); HEMOGLOBIN 10.2 g/dL (12.0-16.0); LYMPHOCYTES PERCENT AUTO 4.1 % (20.5-50.1); MEAN CORPUSCULAR HEMOGLOBIN 29.9 pg (27.0-34.0); MEAN CORPUSCULAR HGB CONC 34.6 g/dL (33.0-35.0); MEAN CORPUSCULAR VOLUME 86.5 fL (80-100); MONOCYTES PERCENT AUTO 5.1 % (2-8); NEUTROPHILS PERCENT AUTO 90.8 % (42.2-75.2); PLATELET COUNT,PLT 142 10^3/uL (150-450); RED BLOOD CELL COUNT 3.41 10^6/uL (4.2-5.4); WHITE BLOOD CELL COUNT,WBC 20.3 10^3/uL (5.0-10.0)
[2022-12-28] MEDS ORDERED: Sodium Chloride 0.9% 500 ML IV SCH (18:30)
[2022-12-28 18:52] LABS: A/G RATIO 0.81; ANION GAP 13.1 mEq/L (7-13); BILIRUBIN TOTAL 1.3 mg/dL (0.2-1.0); BUN/CREATININE RATIO 18.1 (No establ ref range); CALCIUM 8.3 mg/dL (8.5-10.1); CREATININE 0.83 mg/dL (0.55-1.02); EST CRCL DRUG DOSING (CG) 53.98 mL/min; LACTIC ACID 1.7 mmol/L (0.4-2.0); POTASSIUM,K 3.1 mmol/L (3.5-5.1); PROTEIN TOTAL,TP 6.7 g/dL (6.4-8.2)
[2022-12-28 19:08] LABS: CORONAVIRUS COVID-19 NAA NEGATIVE (NEGATIVE); INFLUENZA A NAA NEGATIVE (NEGATIVE); INFLUENZA B NAA NEGATIVE (NEGATIVE); RESPIRATORY SYNCYTIAL VIR NAA NEGATIVE (NEGATIVE)
[2022-12-28] MEDS ORDERED: Acetaminophen/oxyCODONE 325-5 MG Tab PO PRN (19:44)
[2022-12-28] MEDS ORDERED: Albuterol/Ipratropium 3.0-0.5 MG/3 ML Neb Soln NEB PRN (19:44)
[2022-12-28] MEDS ORDERED: Bisacodyl 5 MG Tab PO PRN (19:44)
[2022-12-28] MEDS ORDERED: Ondansetron 4 MG/2 ML SDV IVPUSH PRN (19:44)
[2022-12-28] MEDS ORDERED: Docusate Sodium 100 MG Cap PO PRN (19:44)
[2022-12-28] MEDS: cefTRIAXone 1 GM Vial IVPUSH SCH (20:10)
[2022-12-28] MEDS: Acetaminophen 325 MG Tab PO PRN (20:12)
[2022-12-28] MEDS: Potassium Chloride 10 MEQ Tab.ER PO SCH (20:14)
[2022-12-29 00:22] LABS: APPEARANCE,URINE SLIGHTLY CLOUDY (CLEAR); BILIRUBIN,URINE SMALL (NEGATIVE); COLOR,URINE DARK YELLOW (YELLOW); GLUCOSE,URINE NEGATIVE (NEGATIVE); KETONES,URINE TRACE (NEGATIVE); LEUKOCYTE ESTERASE,URINE NEGATIVE (NEGATIVE); NITRITE,URINE NEGATIVE (NEGATIVE); OCCULT BLOOD,URINE NEGATIVE (NEGATIVE); PH,URINE 5.5 (5.0-9.0); PROTEIN,URINE 30 (NEGATIVE)
[2022-12-29 00:30] LABS: BACTERIA,URINE FEW /HPF (0-FEW/HPF); EPITHELIAL CELLS,URINE MODERATE /HPF (NOT SEEN); RBC,URINE 0-5 /HPF (0-5); WBC,URINE 0-5 /HPF (0-5/HPF)
[2022-12-29 06:22] LABS: BASOPHILS PERCENT AUTO 0.2 % (0.0-1.0); EOSINOPHILS PERCENT AUTO 0.2 % (1.0-3.0); HEMATOCRIT 27.6 % (37.0-47.0); HEMOGLOBIN 9.2 g/dL (12.0-16.0); LYMPHOCYTES PERCENT AUTO 7.2 % (20.5-50.1); MEAN CORPUSCULAR HEMOGLOBIN 29.9 pg (27.0-34.0); MEAN CORPUSCULAR HGB CONC 33.3 g/dL (33.0-35.0); MEAN CORPUSCULAR VOLUME 89.6 fL (80-100); MONOCYTES PERCENT AUTO 5.6 % (2-8); NEUTROPHILS PERCENT AUTO 86.8 % (42.2-75.2); PLATELET COUNT,PLT 122 10^3/uL (150-450); RED BLOOD CELL COUNT 3.08 10^6/uL (4.2-5.4); WHITE BLOOD CELL COUNT,WBC 17.9 10^3/uL (5.0-10.0)
[2022-12-29 06:43] LABS: ALBUMIN 2.6 g/dL (3.4-5.0); BILIRUBIN TOTAL 0.7 mg/dL (0.2-1.0); BUN/CREATININE RATIO 19.8 (No establ ref range); CREATININE 0.96 mg/dL (0.55-1.02); EST CRCL DRUG DOSING (CG) 48.48 mL/min; PROTEIN TOTAL,TP 6.2 g/dL (6.4-8.2)
[2022-12-29 06:55] LABS: A/G RATIO 0.72
[2022-12-29] MEDS: Azithromycin 250 MG Tab PO SCH (08:35)
[2022-12-29] MEDS: Enoxaparin 40 MG/0.4 ML Syringe SUBCUT SCH (08:36)
[2022-12-29] MEDS ORDERED: Iopamidol 612 MG/ML 100 ML Bottle IVPUSH ONE (08:49)
[2022-12-29] MEDS ORDERED: Fluticasone NASAL Spray 16 GM Bottle NASBOTH PRN (08:53)
[2022-12-29] MEDS ORDERED: Albuterol 0.083% 2.5 MG/3 ML Neb Soln INH PRN (08:53)
[2022-12-29 08:59] LABS: AMYLASE 5 U/L (25-115)
[2022-12-29 09:00] LABS: LIPASE < 10 U/L (73-393)
[2022-12-29] MEDS ORDERED: 50% Dextrose in Water 50 ML Syringe IVPUSH PRN (09:01)
[2022-12-29] MEDS ORDERED: Glucagon,Human Recombinant 1 MG Vial IM PRN (09:01)
[2022-12-29] MEDS: Famotidine 20 MG Tab PO SCH (12:09)
[2022-12-29] MEDS: amLODIPine 5 MG Tab PO SCH (12:10)
[2022-12-29] MEDS: Iron Polysaccharides Complex 150 MG Cap PO SCH ×2 (12:10→20:36)
[2022-12-29] MEDS: Aspirin 81 MG Tab.Chew PO SCH (12:10)
[2022-12-29] MEDS: Cyanocobalamin (Vitamin B12) 100 MCG Tab PO SCH (12:12)
[2022-12-29] MEDS: Acetaminophen 325 MG Tab PO PRN (12:12)
[2022-12-29] MEDS: Carvedilol 25 MG Tab PO SCH ×2 (12:13→20:36)
[2022-12-29] MEDS: Insulin Glarg,Human.Rec.Analog 100 Unit/ML SUBCUT SCH ×2 (12:14→20:40)
[2022-12-29] MEDS: cefTRIAXone 1 GM Vial IVPUSH SCH (20:31)
[2022-12-29] MEDS: Sodium Chloride 0.9% 10 ML Syringe FLUSH PRN ×2 (20:31→20:35)
[2022-12-29] MEDS: Potassium Chloride 10 MEQ Tab.ER PO SCH (20:36)
[2022-12-29] MEDS ORDERED: Melatonin 3 MG Tab PO PRN (20:46)
[2022-12-29] MEDS ORDERED: atorvaSTATin 10 MG Tab PO SCH (21:00)
[2022-12-29] MEDS ORDERED: guaiFENesin/Dextromethorphan 100-10 MG/5 ML Soln 5 ML Cup PO PRN (21:50)
[2022-12-30 06:04] LABS: BASOPHILS PERCENT AUTO 0.2 % (0.0-1.0); HEMATOCRIT 26.5 % (37.0-47.0); HEMOGLOBIN 8.9 g/dL (12.0-16.0); LYMPHOCYTES PERCENT AUTO 8.7 % (20.5-50.1); MEAN CORPUSCULAR HEMOGLOBIN 29.9 pg (27.0-34.0); MEAN CORPUSCULAR HGB CONC 33.6 g/dL (33.0-35.0); MEAN CORPUSCULAR VOLUME 88.9 fL (80-100); MONOCYTES PERCENT AUTO 5.9 % (2-8); NEUTROPHILS PERCENT AUTO 84.2 % (42.2-75.2); PLATELET COUNT,PLT 122 10^3/uL (150-450); RED BLOOD CELL COUNT 2.98 10^6/uL (4.2-5.4); WHITE BLOOD CELL COUNT,WBC 12.8 10^3/uL (5.0-10.0)
[2022-12-30 06:26] LABS: A/G RATIO 0.65; ALBUMIN 2.4 g/dL (3.4-5.0); ANION GAP 6.9 mEq/L (7-13); BILIRUBIN TOTAL 0.5 mg/dL (0.2-1.0); BUN/CREATININE RATIO 21.1 (No establ ref range); CALCIUM 8.3 mg/dL (8.5-10.1); CREATININE 0.57 mg/dL (0.55-1.02); EST CRCL DRUG DOSING (CG) 81.65 mL/min; POTASSIUM,K 3.9 mmol/L (3.5-5.1); PROTEIN TOTAL,TP 6.1 g/dL (6.4-8.2)
[2022-12-30] MEDS: Aspirin 81 MG Tab.Chew PO SCH (09:09)
[2022-12-30] MEDS: Acetaminophen 325 MG Tab PO PRN (09:09)
[2022-12-30] MEDS: Enoxaparin 40 MG/0.4 ML Syringe SUBCUT SCH (09:10)
[2022-12-30] MEDS: Famotidine 20 MG Tab PO SCH (09:10)
[2022-12-30] MEDS: amLODIPine 5 MG Tab PO SCH (09:10)
[2022-12-30] MEDS: Azithromycin 250 MG Tab PO SCH (09:10)
[2022-12-30] MEDS: Carvedilol 25 MG Tab PO SCH (09:10)
[2022-12-30] MEDS: Iron Polysaccharides Complex 150 MG Cap PO SCH (09:11)
[2022-12-30] MEDS: Cyanocobalamin (Vitamin B12) 100 MCG Tab PO SCH (09:11)
[2022-12-30] MEDS: Insulin Glarg,Human.Rec.Analog 100 Unit/ML SUBCUT SCH (09:12)
[2022-12-30 12:28] VITALS: BP 148/51; PULSE 86
== END 2022-12-30 12:50 | disposition home or self-care (01) | DRG 194 ==
LOC: DL.ED 17:35 → DL.MS 19:15 → DL.ED 19:21
PROVIDERS: ADMIT Internal Medicine; ATTEND Internal Medicine
DX: J18.9 Pneumonia, unspecified organism (principal); E86.0 Dehydration; J44.0 Chronic obstructive pulmonary disease with (acute) lower respiratory infection; M81.0 Age-related osteoporosis without current pathological fracture; R94.5 Abnormal results of liver function studies; E11.9 Type 2 diabetes mellitus without complications; J44.9 Chronic obstructive pulmonary disease, unspecified; I10 Essential (primary) hypertension; I25.10 Atherosclerotic heart disease of native coronary artery without angina pectoris; K21.9 Gastro-esophageal reflux disease without esophagitis; E66.9 Obesity, unspecified; H54.7 Unspecified visual loss; Z79.84 Long term (current) use of oral hypoglycemic drugs; E78.00 Pure hypercholesterolemia, unspecified; I11.0 Hypertensive heart disease with heart failure; Z20.822 Contact with and (suspected) exposure to COVID-19; I50.9 Heart failure, unspecified; E11.42 Type 2 diabetes mellitus with diabetic polyneuropathy; F41.9 Anxiety disorder, unspecified; Z96.649 Presence of unspecified artificial hip joint; Z79.82 Long term (current) use of aspirin; Z79.4 Long term (current) use of insulin; Z79.899 Other long term (current) drug therapy; Z90.710 Acquired absence of both cervix and uterus; Z90.49 Acquired absence of other specified parts of digestive tract
CPT/HCPCS: 0241U; 36415; 71045; 71260; 74177; 80053; 81001; 82150; 82947; 83605; 83690; 83880; 84484; 85025; 87040; 93005; 93010; 93970; 96365; 96375; 99284; 99285-25; A9270-GY; J0456; J0696; J1650; J1815-GY; J3490; J7040; J7050; Q9967

== ENCOUNTER 2023-01-20 15:50 | Inpatient (IN) | payer MEDICARE, OTHER ==
[2023-01-20 15:48] LABS: BASOPHILS PERCENT AUTO 1.1 % (0.0-1.0); EOSINOPHILS PERCENT AUTO 2.2 % (1.0-3.0); HEMATOCRIT 31.2 % (37.0-47.0); MEAN CORPUSCULAR HEMOGLOBIN 30.5 pg (27.0-34.0); MEAN CORPUSCULAR HGB CONC 35.3 g/dL (33.0-35.0); MEAN CORPUSCULAR VOLUME 86.4 fL (80-100); NEUTROPHILS PERCENT AUTO 59.7 % (42.2-75.2); PLATELET COUNT,PLT 131 10^3/uL (150-450); RED BLOOD CELL COUNT 3.61 10^6/uL (4.2-5.4); WHITE BLOOD CELL COUNT,WBC 2.7 10^3/uL (5.0-10.0)
[2023-01-20 16:15] LABS: PROTHROMBIN TIME 9.8 SEC (9.0-12.0); PTT,PARTIAL THROMBOPLSTIN TIME 31.2 SEC (22.0-34.0)
[2023-01-20 16:24] LABS: LACTIC ACID 1.1 mmol/L (0.4-2.0)
[2023-01-20 16:30] LABS: ALANINE AMINOTRANSFERASE,ALT 32 U/L (14-59); ALBUMIN 3.2 g/dL (3.4-5.0); ALKALINE PHOSPHATASE 137 U/L (46-116); ANION GAP 7.6 mEq/L (7-13); ASPARTATE AMNIOTRANSFERASE,AST 40 U/L (15-37); BILIRUBIN TOTAL 0.5 mg/dL (0.2-1.0); BLOOD UREA NITROGEN,BUN 6 mg/dL (7-18); BUN/CREATININE RATIO 10.3 (No establ ref range); C-REACTIVE PROTEIN 0.5 mg/dL (0.0-0.9); CALCIUM 8.5 mg/dL (8.5-10.1); CARBON DIOXIDE,CO2 31 mmol/L (21-32); CHLORIDE,CL 98 mmol/L (98-107); CREATININE 0.58 mg/dL (0.55-1.02); EST CRCL DRUG DOSING (CG) 77.25 mL/min; GLUCOSE RANDOM 205 mg/dL (70-99); POTASSIUM,K 3.6 mmol/L (3.5-5.1); PROTEIN TOTAL,TP 6.6 g/dL (6.4-8.2); SODIUM,NA 133 mmol/L (136-145)
[2023-01-20 16:32] LABS: B-TYPE NATRIURETIC PEPTIDE,BNP 94 pg/ml (0-100)
[2023-01-20 16:41] LABS: A/G RATIO 0.94; ESTIMATED GFR 94 mL/min (>=60)
[2023-01-20] MEDS ORDERED: Iopamidol 755 Mg/ML 100 ML Bottle IVPUSH ONE (16:50)
[2023-01-20] MEDS ORDERED: methylPREDNISolone Sodium Succinate 125 MG/2 ML SDV IVPUSH ONE (18:23)
[2023-01-20] MEDS ORDERED: Metoprolol Tartrate 5 MG/5 ML SDV IVPUSH PRN (19:22)
[2023-01-20] MEDS ORDERED: Glucagon,Human Recombinant 1 MG Vial IM PRN (19:25)
[2023-01-20] MEDS ORDERED: 50% Dextrose in Water 50 ML Syringe IVPUSH PRN (19:25)
[2023-01-20] MEDS ORDERED: Azithromycin 500 MG in Sodium Chloride 0.9% 250 ML IV ONE (19:29)
[2023-01-20] MEDS ORDERED: HYDROmorphone 0.5 MG/0.5 ML Syringe IVPUSH PRN (19:30)
[2023-01-20] MEDS ORDERED: Ondansetron 4 MG/2 ML SDV IVPUSH PRN (19:30)
[2023-01-20] MEDS ORDERED: Magnesium Hydroxide 400 MG/5 ML Susp 30 ML Cup PO PRN (19:30)
[2023-01-20] MEDS ORDERED: Albuterol/Ipratropium 3.0-0.5 MG/3 ML Neb Soln NEB PRN (19:30)
[2023-01-20] MEDS ORDERED: Acetaminophen 325 MG Tab PO PRN (19:30)
[2023-01-20] MEDS ORDERED: Polyethylene Glycol 3350 Powder 17 GM Packet PO PRN (19:30)
[2023-01-20] MEDS ORDERED: Sodium Chloride 0.9% 1,000 ML IV SCH (20:15)
[2023-01-20] MEDS ORDERED: Non-Formulary Medication 1 Each (Alendronate Sodium [Alendronate Sodium] 70 MG Tablet) PO SCH (20:15)
[2023-01-20] MEDS: hydrALAZINE 20 MG/ML SDV IVPUSH PRN (20:17)
[2023-01-20] MEDS: Dexamethasone 4 MG/ML SDV IVPUSH SCH (20:33)
[2023-01-20] MEDS: guaiFENesin 600 MG Tab.ER PO SCH (20:34)
[2023-01-20] MEDS: Insulin Glarg,Human.Rec.Analog 100 Unit/ML SUBCUT SCH (20:34)
[2023-01-20] MEDS: guaiFENesin/Dextromethorphan 100-10 MG/5 ML Soln 5 ML Cup PO PRN (20:36)
[2023-01-20] MEDS: atorvaSTATin 10 MG Tab PO SCH (20:57)
[2023-01-20] MEDS: Ascorbic Acid 500 MG Tab PO SCH (20:57)
[2023-01-20] MEDS: Carvedilol 25 MG Tab PO SCH (20:58)
[2023-01-20] MEDS: Iron Polysaccharides Complex 150 MG Cap PO SCH (20:58)
[2023-01-20] MEDS: Melatonin 3 MG Tab PO SCH (20:59)
[2023-01-20] MEDS ORDERED: Furosemide 20 MG Tab PO SCH (21:00)
[2023-01-20] MEDS: Sodium Chloride 0.9% 10 ML Syringe FLUSH SCH (21:16)
[2023-01-20] MEDS: Piperacillin/Tazobactam 3.375 GM in Sodium Chloride 0.9% 100 ML IV SCH (23:47)
[2023-01-21] MEDS: hydrALAZINE 20 MG/ML SDV IVPUSH PRN ×2 (04:46→16:18)
[2023-01-21] MEDS: Piperacillin/Tazobactam 3.375 GM in Sodium Chloride 0.9% 100 ML IV SCH ×4 (05:00→23:36)
[2023-01-21 06:32] LABS: HEMATOCRIT 32.4 % (37.0-47.0); HEMOGLOBIN 11.2 g/dL (12.0-16.0); MEAN CORPUSCULAR HEMOGLOBIN 29.7 pg (27.0-34.0); MEAN CORPUSCULAR HGB CONC 34.6 g/dL (33.0-35.0); MEAN CORPUSCULAR VOLUME 85.9 fL (80-100); PLATELET COUNT,PLT 130 10^3/uL (150-450); RED BLOOD CELL COUNT 3.77 10^6/uL (4.2-5.4); WHITE BLOOD CELL COUNT,WBC 1.9 10^3/uL (5.0-10.0)
[2023-01-21 06:44] LABS: BASOPHILS PERCENT AUTO 0.5 % (0.0-1.0); LYMPHOCYTES PERCENT AUTO 27.8 % (20.5-50.1); MONOCYTES PERCENT AUTO 2.1 % (2-8); NEUTROPHILS PERCENT AUTO 69.6 % (42.2-75.2)
[2023-01-21 06:55] LABS: ANION GAP 12.6 mEq/L (7-13); BILIRUBIN TOTAL 0.7 mg/dL (0.2-1.0); BUN/CREATININE RATIO 12.9 (No establ ref range); C-REACTIVE PROTEIN 0.2 mg/dL (0.0-0.9); CALCIUM 8.1 mg/dL (8.5-10.1); CREATININE 0.62 mg/dL (0.55-1.02); EST CRCL DRUG DOSING (CG) 72.26 mL/min; MAGNESIUM 1.6 mg/dL (1.8-2.4); POTASSIUM,K 3.6 mmol/L (3.5-5.1); PROTEIN TOTAL,TP 6.4 g/dL (6.4-8.2)
[2023-01-21 07:03] LABS: A/G RATIO 0.88
[2023-01-21 07:30] LABS: LYMPHOCYTES PERCENT MAN 31 % (20-50); MONOCYTES PERCENT MAN 4 % (2-8); SEG NEUTROPHILS PERCENT MAN 65 % (42-75)
[2023-01-21] MEDS: Albuterol/Ipratropium 3.0-0.5 MG/3 ML Neb Soln NEB SCH ×2 (07:30→18:24)
[2023-01-21] MEDS: Insulin Lispro 100 Units/ML 3 ML Vial SUBCUT SCH ×3 (08:11→17:08)
[2023-01-21] MEDS: Iron Polysaccharides Complex 150 MG Cap PO SCH ×2 (08:12→21:34)
[2023-01-21] MEDS: Famotidine 20 MG Tab PO SCH (08:12)
[2023-01-21] MEDS: Lisinopril 20 MG Tab PO SCH (08:12)
[2023-01-21] MEDS: guaiFENesin 600 MG Tab.ER PO SCH ×2 (08:12→21:36)
[2023-01-21] MEDS: Aspirin 81 MG Tab.Chew PO SCH (08:12)
[2023-01-21] MEDS: Multivitamin Tab PO SCH (08:13)
[2023-01-21] MEDS: Cyanocobalamin (Vitamin B12) 100 MCG Tab PO SCH (08:13)
[2023-01-21] MEDS: Ascorbic Acid 500 MG Tab PO SCH ×2 (08:13→21:35)
[2023-01-21] MEDS: Carvedilol 25 MG Tab PO SCH ×2 (08:13→21:34)
[2023-01-21] MEDS: Furosemide 20 MG Tab PO SCH (08:13)
[2023-01-21] MEDS: amLODIPine 5 MG Tab PO SCH (08:13)
[2023-01-21] MEDS: Dexamethasone 4 MG/ML SDV IVPUSH SCH ×2 (08:14→21:40)
[2023-01-21] MEDS: Sodium Chloride 0.9% 10 ML Syringe FLUSH SCH ×2 (08:14→21:40)
[2023-01-21] MEDS: Insulin Glarg,Human.Rec.Analog 100 Unit/ML SUBCUT SCH ×2 (08:15→21:31)
[2023-01-21] MEDS ORDERED: Magnesium Sulfate/Water 2 GM in Premix Bag 1 BAG IV ONE (10:04)
[2023-01-21] MEDS: guaiFENesin/Dextromethorphan 100-10 MG/5 ML Soln 5 ML Cup PO PRN ×2 (10:21→21:39)
[2023-01-21] MEDS ORDERED: GI Cocktail Oral Solution 30 ML PO PRN (10:22)
[2023-01-21] MEDS ORDERED: Benzocaine/Cetylpyridinium/Menthol Lozenge MUCMEM PRN (10:27)
[2023-01-21] MEDS: [UNRECOGNIZED DRUG - REMARK] PO SCH ×2 (10:39→21:46)
[2023-01-21] MEDS ORDERED: cloNIDine 0.1 MG Tab PO ONE (18:00)
[2023-01-21] MEDS ORDERED: LORazepam 2 MG/ML SDV IVPUSH ONE (19:14)
[2023-01-21] MEDS ORDERED: Flumazenil 0.1 MG/ML 5 ML MDV IVPUSH PRN (19:14)
[2023-01-21] MEDS: Azithromycin 500 MG in Sodium Chloride 0.9% 250 ML IV SCH (19:27)
[2023-01-21] MEDS: atorvaSTATin 10 MG Tab PO SCH (21:34)
[2023-01-21] MEDS: Melatonin 3 MG Tab PO SCH (21:34)
[2023-01-21] MEDS: traZODone 50 MG Tab PO PRN (21:34)
[2023-01-22] MEDS: Sodium Chloride 0.9% 10 ML Syringe FLUSH PRN ×4 (05:43→21:21)
[2023-01-22] MEDS: Piperacillin/Tazobactam 3.375 GM in Sodium Chloride 0.9% 100 ML IV SCH ×3 (05:43→17:18)
[2023-01-22 06:08] LABS: HEMATOCRIT 31.7 % (37.0-47.0); HEMOGLOBIN 10.8 g/dL (12.0-16.0); LYMPHOCYTES PERCENT AUTO 24.8 % (20.5-50.1); MEAN CORPUSCULAR HEMOGLOBIN 29.6 pg (27.0-34.0); MEAN CORPUSCULAR HGB CONC 34.1 g/dL (33.0-35.0); MEAN CORPUSCULAR VOLUME 86.8 fL (80-100); MONOCYTES PERCENT AUTO 9.1 % (2-8); NEUTROPHILS PERCENT AUTO 66.1 % (42.2-75.2); PLATELET COUNT,PLT 148 10^3/uL (150-450); RED BLOOD CELL COUNT 3.65 10^6/uL (4.2-5.4)
[2023-01-22] MEDS: Albuterol/Ipratropium 3.0-0.5 MG/3 ML Neb Soln NEB SCH ×2 (06:09→17:45)
[2023-01-22] MEDS: guaiFENesin/Dextromethorphan 100-10 MG/5 ML Soln 5 ML Cup PO PRN (06:22)
[2023-01-22 06:34] LABS: ALANINE AMINOTRANSFERASE,ALT 25 U/L (14-59); ALBUMIN 2.9 g/dL (3.4-5.0); ALKALINE PHOSPHATASE 116 U/L (46-116); ANION GAP 10.4 mEq/L (7-13); ASPARTATE AMNIOTRANSFERASE,AST 27 U/L (15-37); BILIRUBIN TOTAL 0.4 mg/dL (0.2-1.0); BLOOD UREA NITROGEN,BUN 7 mg/dL (7-18); CALCIUM 8.1 mg/dL (8.5-10.1); CARBON DIOXIDE,CO2 28 mmol/L (21-32); CHLORIDE,CL 104 mmol/L (98-107); CREATININE 0.54 mg/dL (0.55-1.02); EST CRCL DRUG DOSING (CG) 82.97 mL/min; GLUCOSE RANDOM 245 mg/dL (70-99); MAGNESIUM 2.2 mg/dL (1.8-2.4); POTASSIUM,K 3.4 mmol/L (3.5-5.1); PROTEIN TOTAL,TP 6.1 g/dL (6.4-8.2); SODIUM,NA 139 mmol/L (136-145)
[2023-01-22 06:43] LABS: A/G RATIO 0.91; C-REACTIVE PROTEIN < 0.2 mg/dL (0.0-0.9); ESTIMATED GFR 95 mL/min (>=60)
[2023-01-22] MEDS: Insulin Lispro 100 Units/ML 3 ML Vial SUBCUT SCH ×3 (08:19→17:18)
[2023-01-22] MEDS: Famotidine 20 MG Tab PO SCH (08:20)
[2023-01-22] MEDS: Iron Polysaccharides Complex 150 MG Cap PO SCH ×2 (08:21→21:13)
[2023-01-22] MEDS: Ascorbic Acid 500 MG Tab PO SCH ×2 (08:21→21:13)
[2023-01-22] MEDS: Carvedilol 25 MG Tab PO SCH ×2 (08:21→21:13)
[2023-01-22] MEDS: guaiFENesin 600 MG Tab.ER PO SCH ×2 (08:21→21:12)
[2023-01-22] MEDS: Cyanocobalamin (Vitamin B12) 100 MCG Tab PO SCH (08:21)
[2023-01-22] MEDS: Aspirin 81 MG Tab.Chew PO SCH (08:21)
[2023-01-22] MEDS: Furosemide 20 MG Tab PO SCH (08:21)
[2023-01-22] MEDS: Multivitamin Tab PO SCH (08:22)
[2023-01-22] MEDS: amLODIPine 5 MG Tab PO SCH (08:22)
[2023-01-22] MEDS: Lisinopril 20 MG Tab PO SCH (08:23)
[2023-01-22] MEDS: [UNRECOGNIZED DRUG - REMARK] PO SCH ×2 (08:24→21:14)
[2023-01-22] MEDS: Sodium Chloride 0.9% 10 ML Syringe FLUSH SCH ×2 (08:27→21:01)
[2023-01-22] MEDS: Dexamethasone 4 MG/ML SDV IVPUSH SCH (08:27)
[2023-01-22] MEDS: Insulin Glarg,Human.Rec.Analog 100 Unit/ML SUBCUT SCH ×2 (08:31→21:18)
[2023-01-22] MEDS ORDERED: Potassium Chloride 10 MEQ Tab.ER PO ONE (11:00)
[2023-01-22] MEDS ORDERED: Insulin Glarg,Human.Rec.Analog 100 Unit/ML SUBCUT SCH ×2 (21:00)
[2023-01-22] MEDS: Azithromycin 500 MG in Sodium Chloride 0.9% 250 ML IV SCH (21:01)
[2023-01-22] MEDS: traZODone 50 MG Tab PO PRN (21:12)
[2023-01-22] MEDS: atorvaSTATin 10 MG Tab PO SCH (21:13)
[2023-01-22] MEDS: Melatonin 3 MG Tab PO SCH (21:16)
[2023-01-23] MEDS: Piperacillin/Tazobactam 3.375 GM in Sodium Chloride 0.9% 100 ML IV SCH ×3 (00:35→12:50)
[2023-01-23] MEDS: guaiFENesin/Dextromethorphan 100-10 MG/5 ML Soln 5 ML Cup PO PRN (02:14)
[2023-01-23 06:30] LABS: BASOPHILS PERCENT AUTO 0.2 % (0.0-1.0); HEMATOCRIT 31.4 % (37.0-47.0); HEMOGLOBIN 10.5 g/dL (12.0-16.0); LYMPHOCYTES PERCENT AUTO 29.3 % (20.5-50.1); MEAN CORPUSCULAR HEMOGLOBIN 29.6 pg (27.0-34.0); MEAN CORPUSCULAR HGB CONC 33.4 g/dL (33.0-35.0); MEAN CORPUSCULAR VOLUME 88.5 fL (80-100); NEUTROPHILS PERCENT AUTO 58.5 % (42.2-75.2); PLATELET COUNT,PLT 144 10^3/uL (150-450); RED BLOOD CELL COUNT 3.55 10^6/uL (4.2-5.4); WHITE BLOOD CELL COUNT,WBC 5.4 10^3/uL (5.0-10.0)
[2023-01-23] MEDS: Albuterol/Ipratropium 3.0-0.5 MG/3 ML Neb Soln NEB SCH (06:30)
[2023-01-23 06:55] LABS: ALANINE AMINOTRANSFERASE,ALT 28 U/L (14-59); ALBUMIN 2.7 g/dL (3.4-5.0); ALKALINE PHOSPHATASE 99 U/L (46-116); ANION GAP 8.7 mEq/L (7-13); ASPARTATE AMNIOTRANSFERASE,AST 25 U/L (15-37); BILIRUBIN TOTAL 0.4 mg/dL (0.2-1.0); BLOOD UREA NITROGEN,BUN 5 mg/dL (7-18); BUN/CREATININE RATIO 8.8 (No establ ref range); CALCIUM 7.8 mg/dL (8.5-10.1); CARBON DIOXIDE,CO2 28 mmol/L (21-32); CHLORIDE,CL 109 mmol/L (98-107); CREATININE 0.57 mg/dL (0.55-1.02); GLUCOSE RANDOM 85 mg/dL (70-99); POTASSIUM,K 3.7 mmol/L (3.5-5.1); PROTEIN TOTAL,TP 5.6 g/dL (6.4-8.2); SODIUM,NA 142 mmol/L (136-145)
[2023-01-23 06:56] LABS: A/G RATIO 0.93; C-REACTIVE PROTEIN < 0.2 mg/dL (0.0-0.9); ESTIMATED GFR 94 mL/min (>=60)
[2023-01-23] MEDS: Insulin Lispro 100 Units/ML 3 ML Vial SUBCUT SCH ×2 (08:18→12:57)
[2023-01-23] MEDS ORDERED: Dexamethasone 4 MG/ML SDV IVPUSH SCH (09:00)
[2023-01-23] MEDS: Cyanocobalamin (Vitamin B12) 100 MCG Tab PO SCH (10:04)
[2023-01-23] MEDS: Lisinopril 20 MG Tab PO SCH (10:04)
[2023-01-23] MEDS: Carvedilol 25 MG Tab PO SCH (10:06)
[2023-01-23] MEDS: Iron Polysaccharides Complex 150 MG Cap PO SCH (10:06)
[2023-01-23] MEDS: Famotidine 20 MG Tab PO SCH (10:06)
[2023-01-23] MEDS: Ascorbic Acid 500 MG Tab PO SCH (10:06)
[2023-01-23] MEDS: Multivitamin Tab PO SCH (10:06)
[2023-01-23] MEDS: amLODIPine 5 MG Tab PO SCH (10:07)
[2023-01-23] MEDS: Aspirin 81 MG Tab.Chew PO SCH (10:07)
[2023-01-23] MEDS: Furosemide 20 MG Tab PO SCH (10:07)
[2023-01-23] MEDS: guaiFENesin 600 MG Tab.ER PO SCH (10:07)
[2023-01-23] MEDS: Insulin Glarg,Human.Rec.Analog 100 Unit/ML SUBCUT SCH (10:08)
[2023-01-23] MEDS: Sodium Chloride 0.9% 10 ML Syringe FLUSH SCH (10:08)
[2023-01-23] MEDS: [UNRECOGNIZED DRUG - REMARK] PO SCH (10:09)
[2023-01-23 11:49] VITALS: BP 184/77; PULSE 91
== END 2023-01-23 16:19 | disposition home or self-care (01) | DRG 189 ==
LOC: DL.ED 15:50 → DL.MS 18:46
PROVIDERS: ADMIT Internal Medicine; ATTEND Internal Medicine
DX: J96.00 Acute respiratory failure, unspecified whether with hypoxia or hypercapnia (principal); J44.1 Chronic obstructive pulmonary disease with (acute) exacerbation; E87.1 Hypo-osmolality and hyponatremia; H54.7 Unspecified visual loss; E78.5 Hyperlipidemia, unspecified; I25.10 Atherosclerotic heart disease of native coronary artery without angina pectoris; I50.9 Heart failure, unspecified; I11.0 Hypertensive heart disease with heart failure; K74.60 Unspecified cirrhosis of liver; K21.9 Gastro-esophageal reflux disease without esophagitis; D50.9 Iron deficiency anemia, unspecified; G47.00 Insomnia, unspecified; E11.42 Type 2 diabetes mellitus with diabetic polyneuropathy; Z20.822 Contact with and (suspected) exposure to COVID-19; M81.0 Age-related osteoporosis without current pathological fracture; M19.90 Unspecified osteoarthritis, unspecified site; E53.8 Deficiency of other specified B group vitamins; E66.9 Obesity, unspecified; F41.9 Anxiety disorder, unspecified; D69.6 Thrombocytopenia, unspecified; J02.9 Acute pharyngitis, unspecified; R13.10 Dysphagia, unspecified; E83.42 Hypomagnesemia; Z96.649 Presence of unspecified artificial hip joint; E11.65 Type 2 diabetes mellitus with hyperglycemia; Z79.82 Long term (current) use of aspirin; Z79.84 Long term (current) use of oral hypoglycemic drugs; Z88.8 Allergy status to other drugs, medicaments and biological substances; Z90.710 Acquired absence of both cervix and uterus; Z83.3 Family history of diabetes mellitus; Z98.890 Other specified postprocedural states; Z79.899 Other long term (current) drug therapy; Z82.49 Family history of ischemic heart disease and other diseases of the circulatory system; Z86.010 Personal history of colon polyps; Z68.25 Body mass index [BMI] 25.0-25.9, adult
CPT/HCPCS: 36415; 71275; 80053; 82947; 83605; 83735; 83880; 84145; 84484; 85025; 85379; 85610; 85730; 86140; 87040; 87070; 87081; 87205; 87430; 87804; 93005; 94640; A9270-GY; J0360; J0456; J1100; J1815-GY; J2543; J2930; J3475; J3490; J7030; J7050; J7620-GY; Q9967; U0002

== ENCOUNTER 2024-07-25 04:41 | Inpatient (IN) | payer MEDICARE, OTHER ==
[2024-07-25 05:00] LABS: BASOPHILS PERCENT AUTO 0.5 % (0.0-1.0); EOSINOPHILS PERCENT AUTO 4.4 % (1.0-3.0); HEMATOCRIT 25.5 % (37.0-47.0); HEMOGLOBIN 8.1 g/dL (12.0-16.0); LYMPHOCYTES PERCENT AUTO 6.3 % (20.5-50.1); MEAN CORPUSCULAR HEMOGLOBIN 28.1 pg (27.0-34.0); MEAN CORPUSCULAR HGB CONC 31.8 g/dL (33.0-35.0); MEAN CORPUSCULAR VOLUME 88.5 fL (80-100); MONOCYTES PERCENT AUTO 1.1 % (2-8); NEUTROPHILS PERCENT AUTO 87.7 % (42.2-75.2); PLATELET COUNT,PLT 200 10^3/uL (150-450); RED BLOOD CELL COUNT 2.88 10^6/uL (4.2-5.4); WHITE BLOOD CELL COUNT,WBC 8.8 10^3/uL (5.0-10.0)
[2024-07-25 05:03] LABS: APPEARANCE,URINE CLEAR (CLEAR); BILIRUBIN,URINE NEGATIVE (NEGATIVE); COLOR,URINE YELLOW (YELLOW); GLUCOSE,URINE NEGATIVE (NEGATIVE); KETONES,URINE NEGATIVE (NEGATIVE); LEUKOCYTE ESTERASE,URINE NEGATIVE (NEGATIVE); NITRITE,URINE NEGATIVE (NEGATIVE); OCCULT BLOOD,URINE SMALL (NEGATIVE); PH,URINE 5.5 (5.0-9.0); PROTEIN,URINE >=300 (NEGATIVE); UROBILINOGEN,URINE 0.2 mg/dL (0.2-1.0)
[2024-07-25 05:16] LABS: BACTERIA,URINE FEW /HPF (0-FEW/HPF); EPITHELIAL CELLS,URINE FEW /HPF (NOT SEEN); GRANULAR CASTS,URINE RARE; MUCUS,URINE FEW /LPF (NOT SEEN)
[2024-07-25 05:17] LABS: FINE GRANULAR CASTS,URINE FEW /LPF (NOT SEEN)
[2024-07-25 05:18] LABS: WBC,URINE 30-40 /HPF (0-5/HPF)
[2024-07-25] MEDS: Take Home: Acetaminophen/HYDROcodone 325-5 MG, 5 Tab Pack PO ONE (05:18)
[2024-07-25] MEDS ORDERED: Naloxone 2 MG/2 ML Syringe IVPUSH PRN (05:19)
[2024-07-25] MEDS: fentaNYL 100 MCG/2 ML SDV IVPUSH ONE ×2 (05:21→07:12)
[2024-07-25 05:23] LABS: ALBUMIN 2.5 g/dL (3.4-5.0); ANION GAP 15.8 mEq/L (7-13); BILIRUBIN TOTAL 0.3 mg/dL (0.2-1.0); C-REACTIVE PROTEIN 1.77 ng/dL (<=0.50); CALCIUM 8.3 mg/dL (8.5-10.1); CREATININE 1.81 mg/dL (0.55-1.02); EST CRCL DRUG DOSING (CG) 24.37 mL/min; MAGNESIUM 1.9 mg/dL (1.8-2.4); POTASSIUM,K 4.8 mmol/L (3.5-5.1)
[2024-07-25 05:27] LABS: INR 0.9 (0.9-1.2); PROTHROMBIN TIME 9.7 SEC (9.0-12.0); PTT,PARTIAL THROMBOPLSTIN TIME 29.6 SEC (22.0-34.0)
[2024-07-25 05:31] LABS: A/G RATIO 0.56
[2024-07-25] MEDS: cefTRIAXone 1 GM Vial IVPUSH ONE (06:51)
[2024-07-25] MEDS: Sodium Chloride 0.9% 500 ML IV ONE (07:10)
[2024-07-25] MEDS: Sodium Chloride 0.9% 10 ML Syringe FLUSH PRN (07:16)
[2024-07-25] MEDS ORDERED: Metoprolol Tartrate 5 MG/5 ML SDV IVPUSH PRN (07:45)
[2024-07-25] MEDS ORDERED: Simethicone 80 MG Tab.Chew PO PRN (07:46)
[2024-07-25] MEDS ORDERED: Magnesium Hydroxide 400 MG/5 ML Susp 30 ML Cup PO PRN (07:49)
[2024-07-25] MEDS ORDERED: Sennosides/Docusate Sodium 50-8.6 MG Tab PO PRN (07:49)
[2024-07-25] MEDS ORDERED: Metoclopramide 10 MG/2 ML SDV IV PRN (07:49)
[2024-07-25] MEDS ORDERED: Polyethylene Glycol 3350 Powder 17 GM Packet PO PRN (07:49)
[2024-07-25] MEDS ORDERED: Ondansetron 4 MG/2 ML SDV IVPUSH PRN (07:49)
[2024-07-25] MEDS ORDERED: Acetaminophen/oxyCODONE 325-5 MG Tab PO PRN (07:49)
[2024-07-25 07:54] LABS: PERCENT FE SATURATION 17.6 % (20.0-50.0)
[2024-07-25] MEDS ORDERED: Glucagon,Human Recombinant 1 MG Vial IM PRN (08:27)
[2024-07-25] MEDS ORDERED: 50% Dextrose in Water 50 ML Syringe IVPUSH PRN (08:27)
[2024-07-25] MEDS ORDERED: HYDROmorphone 1 MG/ML Syringe IVPUSH PRN (09:17)
[2024-07-25] MEDS: Insulin Lispro 100 Units/ML 3 ML Vial SUBCUT SCH ×2 (10:51→13:51)
[2024-07-25] MEDS: Sodium Chloride 0.9% 1,000 ML IV SCH (15:54)
[2024-07-25] MEDS: Acetaminophen 325 MG Tab PO PRN (18:04)
[2024-07-26] MEDS: Melatonin 3 MG Tab PO PRN (01:24)
[2024-07-26 06:51] LABS: BASOPHILS PERCENT AUTO 0.7 % (0.0-1.0); EOSINOPHILS PERCENT AUTO 3.4 % (1.0-3.0); HEMATOCRIT 22.1 % (37.0-47.0); LYMPHOCYTES PERCENT AUTO 19.5 % (20.5-50.1); MEAN CORPUSCULAR HEMOGLOBIN 28.3 pg (27.0-34.0); MEAN CORPUSCULAR HGB CONC 31.7 g/dL (33.0-35.0); MEAN CORPUSCULAR VOLUME 89.5 fL (80-100); MONOCYTES PERCENT AUTO 10.8 % (2-8); NEUTROPHILS PERCENT AUTO 65.6 % (42.2-75.2); PLATELET COUNT,PLT 154 10^3/uL (150-450); RED BLOOD CELL COUNT 2.47 10^6/uL (4.2-5.4); WHITE BLOOD CELL COUNT,WBC 7.1 10^3/uL (5.0-10.0)
[2024-07-26 07:26] LABS: ALBUMIN 1.9 g/dL (3.4-5.0); ANION GAP 14.1 mEq/L (7-13); BILIRUBIN TOTAL 0.2 mg/dL (0.2-1.0); CALCIUM 7.9 mg/dL (8.5-10.1); CREATININE 1.19 mg/dL (0.55-1.02); EST CRCL DRUG DOSING (CG) 37.06 mL/min; MAGNESIUM 1.9 mg/dL (1.8-2.4); POTASSIUM,K 4.1 mmol/L (3.5-5.1); PROTEIN TOTAL,TP 5.8 g/dL (6.4-8.2)
[2024-07-26 07:30] LABS: A/G RATIO 0.49
[2024-07-26] MEDS ORDERED: amLODIPine 5 MG Tab PO ONE (08:46)
[2024-07-26] MEDS: Carvedilol 25 MG Tab PO SCH (10:13)
[2024-07-26] MEDS: Lisinopril 20 MG Tab PO SCH (10:14)
[2024-07-26] MEDS: hydrALAZINE 20 MG/ML SDV IVPUSH PRN (13:41)
[2024-07-26 16:27] LABS: HEMATOCRIT 22.1 % (37.0-47.0); HEMOGLOBIN 7.1 g/dL (12.0-16.0)
[2024-07-26] MEDS: Magnesium Sulfate/D5W 1 GM/100 ML BAG IV ONE (17:45)
[2024-07-26] MEDS: methylPREDNISolone Sodium Succinate 40 MG/1 ML SDV IVPUSH ONE (17:45)
[2024-07-26] MEDS: Albuterol/Ipratropium 3.0-0.5 MG/3 ML Neb Soln NEB PRN (18:10)
[2024-07-26] MEDS ORDERED: 50% Dextrose in Water 50 ML Syringe IVPUSH PRN (18:38)
[2024-07-26] MEDS ORDERED: Glucagon,Human Recombinant 1 MG Vial IM PRN (18:38)
[2024-07-26] MEDS ORDERED: Insulin Glarg,Human.Rec.Analog 100 Unit/ML 10 ML Vial SUBCUT ONE (20:00)
[2024-07-26] MEDS ORDERED: diphenhydrAMINE 50 MG/ML SDV IVPUSH PRN (20:46)
[2024-07-26] MEDS: Pantoprazole 40 MG Vial IVPUSH ONE (20:50)
[2024-07-26] MEDS: Insulin Glarg,Human.Rec.Analog 100 Unit/ML 10 ML Vial SUBCUT SCH (20:59)
[2024-07-27] MEDS: Pantoprazole 40 MG Tab.CR PO SCH (05:14)
[2024-07-27 07:09] LABS: BASOPHILS PERCENT AUTO 0.2 % (0.0-1.0); HEMATOCRIT 23.9 % (37.0-47.0); HEMOGLOBIN 7.7 g/dL (12.0-16.0); LYMPHOCYTES PERCENT AUTO 13.8 % (20.5-50.1); MEAN CORPUSCULAR HEMOGLOBIN 28.4 pg (27.0-34.0); MEAN CORPUSCULAR HGB CONC 32.2 g/dL (33.0-35.0); MEAN CORPUSCULAR VOLUME 88.2 fL (80-100); MONOCYTES PERCENT AUTO 1.7 % (2-8); NEUTROPHILS PERCENT AUTO 84.3 % (42.2-75.2); PLATELET COUNT,PLT 154 10^3/uL (150-450); RED BLOOD CELL COUNT 2.71 10^6/uL (4.2-5.4); WHITE BLOOD CELL COUNT,WBC 4.1 10^3/uL (5.0-10.0)
[2024-07-27 07:23] LABS: ALBUMIN 1.9 g/dL (3.4-5.0); BILIRUBIN TOTAL 0.2 mg/dL (0.2-1.0); BUN/CREATININE RATIO 20.3 (No establ ref range); CALCIUM 8.1 mg/dL (8.5-10.1); CREATININE 1.38 mg/dL (0.55-1.02); EST CRCL DRUG DOSING (CG) 31.96 mL/min; MAGNESIUM 2.3 mg/dL (1.8-2.4); PROTEIN TOTAL,TP 6.1 g/dL (6.4-8.2)
[2024-07-27 07:29] LABS: A/G RATIO 0.45
[2024-07-27] MEDS: predniSONE 20 MG Tab PO SCH (08:32)
[2024-07-27] MEDS: Empagliflozin 10 MG Tab PO SCH (10:01)
[2024-07-27 10:45] VITALS: BP 154/62; PULSE 80
== END 2024-07-27 10:30 | disposition home or self-care (01) | DRG 694 ==
LOC: DL.ED 04:41 → DL.MS 07:11
PROVIDERS: ADMIT Internal Medicine; ATTEND Internal Medicine
DX: N20.0 Calculus of kidney (principal); N17.9 Acute kidney failure, unspecified; N30.01 Acute cystitis with hematuria; N13.30 Unspecified hydronephrosis; H54.7 Unspecified visual loss; E78.5 Hyperlipidemia, unspecified; E11.9 Type 2 diabetes mellitus without complications; I25.10 Atherosclerotic heart disease of native coronary artery without angina pectoris; I11.0 Hypertensive heart disease with heart failure; I50.9 Heart failure, unspecified; J44.9 Chronic obstructive pulmonary disease, unspecified; K21.9 Gastro-esophageal reflux disease without esophagitis; Z86.16 Personal history of COVID-19; G47.00 Insomnia, unspecified; Z90.710 Acquired absence of both cervix and uterus; E11.51 Type 2 diabetes mellitus with diabetic peripheral angiopathy without gangrene; E78.00 Pure hypercholesterolemia, unspecified; Z96.641 Presence of right artificial hip joint; J44.89 Other specified chronic obstructive pulmonary disease; F15.90 Other stimulant use, unspecified, uncomplicated; D64.9 Anemia, unspecified; E11.65 Type 2 diabetes mellitus with hyperglycemia; Z79.2 Long term (current) use of antibiotics; Z87.81 Personal history of (healed) traumatic fracture; Z88.8 Allergy status to other drugs, medicaments and biological substances; Z91.048 Other nonmedicinal substance allergy status; Z87.891 Personal history of nicotine dependence; Z79.82 Long term (current) use of aspirin; Z90.49 Acquired absence of other specified parts of digestive tract; Z98.890 Other specified postprocedural states; Z86.73 Personal history of transient ischemic attack (TIA), and cerebral infarction without residual deficits; Z79.02 Long term (current) use of antithrombotics/antiplatelets; Z79.899 Other long term (current) drug therapy; Z79.4 Long term (current) use of insulin; Z86.19 Personal history of other infectious and parasitic diseases
CPT/HCPCS: 36415; 74176; 80053; 81001; 83540; 83550; 83690; 83735; 83880; 84484; 85025; 85610; 85730; 86140; 87086; 87088; 87186; 93005; 93010; 96374; 96375; 99284; 99285; J0696; J3010; J7040; 71045; 76770; 82947; 85014; 85018; A9270-GY; J0360; J1815-GY; J2470; J2919; J3475; J3490; J7030; J7512; J7620-GY

== ENCOUNTER 2024-10-18 14:28 | Emergency (ER) | payer MEDICARE, OTHER ==
[2024-10-18] MEDS ORDERED: Sodium Chloride 0.9% 10 ML Syringe FLUSH PRN (14:43)
[2024-10-18] MEDS: Albuterol/Ipratropium 3.0-0.5 MG/3 ML Neb Soln NEB ONE (15:08)
[2024-10-18] MEDS: methylPREDNISolone Sodium Succinate 125 MG/2 ML SDV IVPUSH ONE (15:08)
[2024-10-18 15:10] LABS: BASOPHILS PERCENT AUTO 0.4 % (0.0-1.0); EOSINOPHILS PERCENT AUTO 3.3 % (1.0-3.0); HEMATOCRIT 24.8 % (37.0-47.0); HEMOGLOBIN 8.2 g/dL (12.0-16.0); LYMPHOCYTES PERCENT AUTO 16.7 % (20.5-50.1); MEAN CORPUSCULAR HEMOGLOBIN 28.6 pg (27.0-34.0); MEAN CORPUSCULAR HGB CONC 33.1 g/dL (33.0-35.0); MEAN CORPUSCULAR VOLUME 86.4 fL (80-100); MONOCYTES PERCENT AUTO 5.2 % (2-8); NEUTROPHILS PERCENT AUTO 74.4 % (42.2-75.2); PLATELET COUNT,PLT 255 10^3/uL (150-450); RED BLOOD CELL COUNT 2.87 10^6/uL (4.2-5.4); WHITE BLOOD CELL COUNT,WBC 6.9 10^3/uL (5.0-10.0)
[2024-10-18 15:37] LABS: ANION GAP 13.7 mEq/L (7-13); BILIRUBIN TOTAL 0.4 mg/dL (0.2-1.0); BUN/CREATININE RATIO 19.3 (No establ ref range); C-REACTIVE PROTEIN 1.07 ng/dL (<=0.50); CALCIUM 8.3 mg/dL (8.5-10.1); CREATININE 1.61 mg/dL (0.55-1.02); EST CRCL DRUG DOSING (CG) 26.96 mL/min; MAGNESIUM 2.2 mg/dL (1.8-2.4); POTASSIUM,K 5.7 mmol/L (3.5-5.1); PROTEIN TOTAL,TP 6.4 g/dL (6.4-8.2)
[2024-10-18 15:38] LABS: LACTIC ACID 0.7 mmol/L (0.4-2.0)
[2024-10-18 15:44] LABS: A/G RATIO 0.45; INR 0.9 (0.9-1.2); PROTHROMBIN TIME 9.4 SEC (9.0-12.0); PTT,PARTIAL THROMBOPLSTIN TIME 26.3 SEC (22.0-34.0)
[2024-10-18] MEDS: Furosemide 40 MG/4 ML VIAL IV ONE (16:10)
[2024-10-18 17:42] LABS: ANION GAP 13.9 mEq/L (7-13); CALCIUM 8.5 mg/dL (8.5-10.1); CREATININE 1.6 mg/dL (0.55-1.02); EST CRCL DRUG DOSING (CG) 27.13 mL/min; POTASSIUM,K 4.9 mmol/L (3.5-5.1)
[2024-10-18] MEDS: Take Home: Azithromycin 250 MG, 2 Tab Pack PO ONE (18:27)
[2024-10-18] MEDS: Take Home: predniSONE 20 MG, 4 Tab Pack PO ONE (18:28)
[2024-10-18 18:38] VITALS: BP 187/83; PULSE 79
== END 2024-10-18 18:27 | disposition home or self-care (01) ==
LOC: DL.ED 14:28
DX: J44.1 Chronic obstructive pulmonary disease with (acute) exacerbation (principal); I11.0 Hypertensive heart disease with heart failure; I50.9 Heart failure, unspecified; I25.10 Atherosclerotic heart disease of native coronary artery without angina pectoris; E78.00 Pure hypercholesterolemia, unspecified; K21.9 Gastro-esophageal reflux disease without esophagitis; E11.40 Type 2 diabetes mellitus with diabetic neuropathy, unspecified; Z86.16 Personal history of COVID-19; Z87.891 Personal history of nicotine dependence; Z90.710 Acquired absence of both cervix and uterus; Z79.82 Long term (current) use of aspirin; Z79.899 Other long term (current) drug therapy; Z79.84 Long term (current) use of oral hypoglycemic drugs; Z91.048 Other nonmedicinal substance allergy status; Z88.8 Allergy status to other drugs, medicaments and biological substances
CPT/HCPCS: 71045; 80048; 80053; 83605; 83735; 83880; 84145; 84484; 85025; 85610; 85730; 86140; 87040; 87428; 93005; 93010; 96374; 96375; 99284; 99285; A9270; J1940; J2919; J7620-GY

== ENCOUNTER 2024-10-20 15:55 | Emergency (ER) | payer MEDICARE, OTHER ==
[2024-10-20] MEDS ORDERED: Sodium Chloride 0.9% 10 ML Syringe FLUSH PRN ×2 (16:36)
[2024-10-20 17:12] LABS: BASOPHILS PERCENT AUTO 0.2 % (0.0-1.0); HEMATOCRIT 25.3 % (37.0-47.0); HEMOGLOBIN 8.4 g/dL (12.0-16.0); LYMPHOCYTES PERCENT AUTO 6.5 % (20.5-50.1); MEAN CORPUSCULAR HEMOGLOBIN 28.1 pg (27.0-34.0); MEAN CORPUSCULAR HGB CONC 33.2 g/dL (33.0-35.0); MEAN CORPUSCULAR VOLUME 84.6 fL (80-100); MONOCYTES PERCENT AUTO 1.2 % (2-8); NEUTROPHILS PERCENT AUTO 92.1 % (42.2-75.2); PLATELET COUNT,PLT 205 10^3/uL (150-450); RED BLOOD CELL COUNT 2.99 10^6/uL (4.2-5.4); WHITE BLOOD CELL COUNT,WBC 10.9 10^3/uL (5.0-10.0)
[2024-10-20 17:27] LABS: INR 0.9 (0.9-1.2); PROTHROMBIN TIME 9.4 SEC (9.0-12.0)
[2024-10-20 17:36] LABS: ALBUMIN 2.3 g/dL (3.4-5.0); ANION GAP 14.1 mEq/L (7-13); BILIRUBIN TOTAL 0.3 mg/dL (0.2-1.0); BUN/CREATININE RATIO 23.9 (No establ ref range); CALCIUM 8.4 mg/dL (8.5-10.1); CREATININE 1.97 mg/dL (0.55-1.02); EST CRCL DRUG DOSING (CG) 22.03 mL/min; POTASSIUM,K 5.1 mmol/L (3.5-5.1); PROTEIN TOTAL,TP 6.5 g/dL (6.4-8.2)
[2024-10-20] MEDS: Sodium Chloride 0.9% 500 ML IV SCH (17:36)
[2024-10-20 17:42] LABS: A/G RATIO 0.55
[2024-10-20] MEDS ORDERED: 50% Dextrose in Water 50 ML Syringe IVPUSH PRN (18:27)
[2024-10-20] MEDS ORDERED: Glucagon,Human Recombinant 1 MG Vial IM PRN (18:27)
[2024-10-20] MEDS: Insulin Regular, Human 100 Units/ML 10 ML Vial IV ONE (18:44)
[2024-10-20 19:32] VITALS: BP 183/77; PULSE 82
== END 2024-10-20 19:42 | disposition home or self-care (01) ==
LOC: DL.ED 15:55
DX: N19 Unspecified kidney failure (principal); E11.65 Type 2 diabetes mellitus with hyperglycemia; M54.9 Dorsalgia, unspecified; I11.0 Hypertensive heart disease with heart failure; I50.9 Heart failure, unspecified; E78.00 Pure hypercholesterolemia, unspecified; Z88.8 Allergy status to other drugs, medicaments and biological substances; Z91.048 Other nonmedicinal substance allergy status; Z79.82 Long term (current) use of aspirin; Z79.84 Long term (current) use of oral hypoglycemic drugs; Z79.899 Other long term (current) drug therapy; Z86.16 Personal history of COVID-19; Z90.49 Acquired absence of other specified parts of digestive tract; Z90.710 Acquired absence of both cervix and uterus
CPT/HCPCS: 36415; 71045; 80053; 82947; 84484; 85025; 85610; 93005; 93010; 96360; 99284; A9270; J7030

== ENCOUNTER 2024-11-07 21:24 | Emergency (ER) | payer MEDICARE, OTHER ==
[2024-11-07] MEDS ORDERED: Sodium Chloride 0.9% 10 ML Syringe FLUSH PRN (21:55)
[2024-11-07 22:26] LABS: BASOPHILS PERCENT AUTO 0.9 % (0.0-1.0); EOSINOPHILS PERCENT AUTO 3.6 % (1.0-3.0); HEMATOCRIT 24.3 % (37.0-47.0); HEMOGLOBIN 7.9 g/dL (12.0-16.0); LYMPHOCYTES PERCENT AUTO 20.3 % (20.5-50.1); MEAN CORPUSCULAR HEMOGLOBIN 28.7 pg (27.0-34.0); MEAN CORPUSCULAR HGB CONC 32.5 g/dL (33.0-35.0); MEAN CORPUSCULAR VOLUME 88.4 fL (80-100); MONOCYTES PERCENT AUTO 6.7 % (2-8); NEUTROPHILS PERCENT AUTO 68.5 % (42.2-75.2); PLATELET COUNT,PLT 202 10^3/uL (150-450); RED BLOOD CELL COUNT 2.75 10^6/uL (4.2-5.4); WHITE BLOOD CELL COUNT,WBC 5.8 10^3/uL (5.0-10.0)
[2024-11-07 22:37] LABS: APPEARANCE,URINE SLIGHTLY CLOUDY (CLEAR); BILIRUBIN,URINE NEGATIVE (NEGATIVE); COLOR,URINE YELLOW (YELLOW); GLUCOSE,URINE 100 (NEGATIVE); KETONES,URINE NEGATIVE (NEGATIVE); LEUKOCYTE ESTERASE,URINE SMALL (NEGATIVE); NITRITE,URINE NEGATIVE (NEGATIVE); OCCULT BLOOD,URINE MODERATE (NEGATIVE); PH,URINE 5.5 (5.0-9.0); PROTEIN,URINE >=300 (NEGATIVE); UROBILINOGEN,URINE 0.2 mg/dL (0.2-1.0)
[2024-11-07 22:49] LABS: ANION GAP 13.5 mEq/L (7-13); BILIRUBIN TOTAL 0.3 mg/dL (0.2-1.0); BUN/CREATININE RATIO 18.6 (No establ ref range); CALCIUM 8.4 mg/dL (8.5-10.1); CREATININE 1.72 mg/dL (0.55-1.02); EST CRCL DRUG DOSING (CG) 25.23 mL/min; MAGNESIUM 1.9 mg/dL (1.8-2.4); POTASSIUM,K 4.5 mmol/L (3.5-5.1); PROTEIN TOTAL,TP 5.9 g/dL (6.4-8.2)
[2024-11-07 22:50] LABS: BACTERIA,URINE MANY /HPF (0-FEW/HPF); EPITHELIAL CELLS,URINE RARE /HPF (NOT SEEN); WBC,URINE PACKED /HPF (0-5/HPF)
[2024-11-07 23:04] LABS: A/G RATIO 0.51
[2024-11-07] MEDS: Bumetanide 1 MG/4 ML MDV IVPUSH ONE (23:36)
[2024-11-08 00:37] VITALS: BP 176/65; PULSE 71
== END 2024-11-08 00:15 | disposition home or self-care (01) ==
LOC: DL.ED 21:24
DX: I13.0 Hypertensive heart and chronic kidney disease with heart failure and stage 1 through stage 4 chronic kidney disease, or unspecified chronic kidney disease (principal); I50.33 Acute on chronic diastolic (congestive) heart failure; N18.32 Chronic kidney disease, stage 3b; I25.10 Atherosclerotic heart disease of native coronary artery without angina pectoris; J44.9 Chronic obstructive pulmonary disease, unspecified; E78.00 Pure hypercholesterolemia, unspecified; E11.22 Type 2 diabetes mellitus with diabetic chronic kidney disease; Z87.891 Personal history of nicotine dependence; K21.9 Gastro-esophageal reflux disease without esophagitis; Z86.16 Personal history of COVID-19
CPT/HCPCS: 36415; 71045; 80053; 81001; 83690; 83735; 83880; 84484; 85025; 85379; 87086; 87088; 87186; 93005; 96374; 99285; J3490; 93010

== ENCOUNTER 2025-06-06 17:00 | Emergency (ER) | payer MEDICARE, OTHER ==
[2025-06-06] MEDS ORDERED: Sodium Chloride 0.9% 10 ML Syringe FLUSH PRN (17:08)
[2025-06-06 17:20] LABS: BASOPHILS PERCENT AUTO 0.3 % (0.0-1.0); EOSINOPHILS PERCENT AUTO 0.4 % (1.0-3.0); LYMPHOCYTES PERCENT AUTO 6.3 % (20.5-50.1); MONOCYTES PERCENT AUTO 7.1 % (2-8); NEUTROPHILS PERCENT AUTO 85.9 % (42.2-75.2); PLATELET COUNT,PLT 165 10^3/uL (150-450); RED BLOOD CELL COUNT 2.62 10^6/uL (4.2-5.4); WHITE BLOOD CELL COUNT,WBC 13.8 10^3/uL (5.0-10.0)
[2025-06-06 17:34] LABS: O2 DELIVERY DEVICE BIPAP
[2025-06-06 17:35] LABS: BASE EXCESS VENOUS -4.1 mmol/l ((-2)-(+3)); BICARBONATE,VENOUS 22 mmol/l (19-25); O2 SATURATION VENOUS 59.4 % (60-80); PCO2 VENOUS 47 mmHg (41-51); PH,VENOUS 7.29 (7.31-7.41); PO2 VENOUS 39 mmHg (35-42)
[2025-06-06 17:38] LABS: B-TYPE NATRIURETIC PEPTIDE,BNP 1150 pg/ml (0-100)
[2025-06-06 17:43] LABS: ALANINE AMINOTRANSFERASE,ALT 21 U/L (14-59); ASPARTATE AMNIOTRANSFERASE,AST 26 U/L (15-37); BILIRUBIN TOTAL 0.6 mg/dL (0.2-1.0); BLOOD UREA NITROGEN,BUN 55 mg/dL (7-18); CARBON DIOXIDE,CO2 24 mmol/L (21-32); CHLORIDE,CL 101 mmol/L (98-107); CREATININE 3.32 mg/dL (0.55-1.02); EST CRCL DRUG DOSING (CG) 11.55 mL/min; GLUCOSE RANDOM 247 mg/dL (70-99); LACTIC ACID 0.8 mmol/L (0.4-2.0); POTASSIUM,K 3.9 mmol/L (3.5-5.1); PROTEIN TOTAL,TP 6.4 g/dL (6.4-8.2); SODIUM,NA 133 mmol/L (136-145)
[2025-06-06 17:44] LABS: A/G RATIO 0.36; ESTIMATED GFR 14 mL/min (>=60)
[2025-06-06 18:32] VITALS: PULSE 86
[2025-06-06 19:55] VITALS: BP 144/53
== END 2025-06-06 20:34 ==
LOC: DL.ED 17:00
DX: A41.9 Sepsis, unspecified organism (principal); J18.9 Pneumonia, unspecified organism; I11.0 Hypertensive heart disease with heart failure; I50.9 Heart failure, unspecified; E78.00 Pure hypercholesterolemia, unspecified; E11.9 Type 2 diabetes mellitus without complications; Z88.8 Allergy status to other drugs, medicaments and biological substances; Z91.048 Other nonmedicinal substance allergy status; Z79.82 Long term (current) use of aspirin; Z79.4 Long term (current) use of insulin; Z79.84 Long term (current) use of oral hypoglycemic drugs; Z79.899 Other long term (current) drug therapy; Z86.16 Personal history of COVID-19; Z90.49 Acquired absence of other specified parts of digestive tract; Z90.710 Acquired absence of both cervix and uterus
CPT/HCPCS: 36415; 71045; 80053; 82803; 83605; 83735; 83880; 84484; 85025; 86140; 87040; 93005; 96365; 96367; 99285; J2543; J3374; J7030; J7050